=== PATIENT | male | born 1980 | race Two or more races ===

== ENCOUNTER 2025-03-14 13:51 | Inpatient (IN) ==
--- NOTE | 2025-03-14 14:33 | XRay Report ---
XR chest 1V portable CLINICAL HISTORY: Sepsis COMPARISON STUDY: None FINDINGS: Heart size and pulmonary vasculature are normal. No consolidation or pleural effusion. No p neumothorax. IMPRESSION: No acute findings. ACT 112: Negative or not required by law. Electronically signed by: Eloy Pace M.D. 03/14/2025 2:31 PM
[2025-03-14 14:48] LABS: Alanine Aminotransferase 13.0 U/L (7-52); Alkaline Phosphatase 105.0 U/L (34-104); Anion Gap 19.0 (3-11); Bilirubin,Total 0.6 mg/dl (0.2-1.0); Blood Urea Nitrogen 25.0 mg/dl (6-23); Calcium 9.5 mg/dl (8.6-10.3); Carbon Dioxide 15.0 mmol/L (21-32); Chloride 95.0 mmol/L (98-107); Creatinine Clr Calc Pharmacy 92.5 ml/min; Glucose 264.0 mg/dl (70-99(Fasting)); Magnesium 1.8 mg/dl (1.7-2.4); Potassium 4.8 mmol/L (3.5-5.1); Sodium 129.0 mmol/L (136-145); Total Protein 7.7 gm/dl (6.0-8.3)
[2025-03-14] MEDS: SODIUM CHLORIDE 0.9% 1,000 ML IV SCH ×2 (14:48→21:44)
[2025-03-14] MEDS: CEFEPIME 2000MG 2,000 MG/20 ML SYR IV STA (14:48)
[2025-03-14 14:55] LABS: Hematocrit (blood only) 42.8 % (42.0-52.0); Hemoglobin 12.5 g/dl (14.0-18.0); Immature Granulocytes # (auto) 0.05 K/uL (0.01-0.20); Immature Granulocytes % (auto) 0.5 %; Mean Corpuscular Hemoglobin 16.7 pg (25.0-34.0); Mean Corpuscular Volume 57.1 fL (80.0-100.0); Microcytosis Present; Platelet Count 344 K/uL (130-400); Polychromasia 1+; RDW Standard Deviation 33.4 fL (36.4-46.3); Red Blood Count 7.49 M/uL (4.70-6.10); Spherocytes 1+; Tear Drop Cells 1+; White Blood Count 9.17 K/ul (4.8-10.8)
[2025-03-14] MEDS ORDERED: VANCOMYCIN CONSULT ACTIVE PRN (15:10)
--- NOTE | 2025-03-14 15:36 | XRay Report ---
XR foot LT min 3V routine CLINICAL HISTORY: first digit ulcer /infection COMPARISON: None FINDINGS: There are degenerative changes with chronic osseous densities or calcifications dorsally a t the midfoot suggesting Charcot joint changes. There is minimal malalignment at the first TMT joint. No other acute fracture or dislocation seen. No evidence of osteomyelitis. No radiopaque foreign bod y. IMPRESSION: 1. No osteomyelitis seen. 2. Otherwise as described. ACT 112: Negative or not required by law. Electronically signed by: Eloy Pace M.D. 03/14/2025 3:34 PM
--- NOTE | 2025-03-14 15:41 | XRay Report ---
XR foot RT min 3V routine CLINICAL HISTORY: 4th digit ulcer/infection COMPARISON: None FINDINGS: There is an old ununited fracture proximally at the third metatarsal. There are degenerati ve changes at the midfoot suggesting early Charcot joint changes. No acute fracture or dislocation se en. No radiopaque foreign body. No evidence of osteomyelitis. IMPRESSION: No osteomyelitis seen. Otherwise as described. ACT 112: Negative or not required by law. Electronically signed by: Eloy Pace M.D. 03/14/2025 3:39 PM
--- NOTE | 2025-03-14 15:52 | Emergency Department Note ---
Impression & Plan Cellulitis of toe of right foot, Diabetic ulcer of toes of both feet, Type 2 diabetes mellitus ED Provider Note CHIEF COMPLAINT: Infected toes HISTORY OF PRESENTING ILLNESS: Patient is a 44-year-old male who presents to the emergency department today [facility] the [place] [facility]". He reports that he has had sandals on that have been rubbing on his left first toe and right fourth toe causing wounds. He is a type II diabetic on metformin no insulin. He was placed on Keflex as an outpatient without any improvement. Patient does report fevers and chills over the past 2 days. He denies any pain to the bilateral feet. He denies chest pain, sob, breathing difficulties, abdominal pain, headache, blood in stool or urine, any recent illness, or any recent travel. REVIEW OF SYSTEMS: See HPI for pertinent positives and pertinent negatives. ALLERGIES: No known allergies MEDICATIONS: See below PAST MEDICAL HISTORY: See below PHYSICAL EXAM: VITALS: Vitals are noted on the nurse's note and reviewed by myself. GENERAL: Appears ill, very diaphoretic, hypotensive, tachycardic, warm to touch but is afebrile. SKIN: Right fourth toe is ulcerated with possible gangrenous with the skin avulsing off. Right foot does appear to have red streaking to the mid superior foot concerning for cellulitis. Left first toe is open with some discharge and a possible gangrenous area and multiple ulcerations. Capillary refill <2 sec. MOUTH: Mucous membranes moist. Uvula midline. Airway patent. NECK: Supple without nuchal rigidity. HEART: Tachycardic without murmurs gallops or rubs. LUNGS: Clear to auscultation bilaterally without wheezes, rales or rhonchi. No retractions or accessory muscle use. ABDOMEN: Positive bowel sounds x 4. Normal tympanic percussion. Soft, nontender to palpation. No masses or hepatosplenomegaly. Avendano sign negative. No CVA tenderness. No guarding, rigidity, or rebound tenderness. No focal RLQ or LLQ tenderness. MUSCULOSKELETAL: No gross musculoskeletal defects. NEURO: Patient was alert and oriented. No focal neurological deficits. DIFFERENTIAL DIAGNOSIS: Osteomyelitis, fracture, infected wound, sepsis, infection, among others ED COURSE AND MEDICAL DECISION MAKING: HISTORY FROM INDEPENDENT HISTORIAN: History was provided by the patient and 2 guards at the bedside. MEDICATIONS GIVEN: An IV lock was placed. The patient was given 2500 mL of his sepsis fluid resuscitation, cefepime and Vanco. MONITOR: Continuous solar thermal installer: Order was placed for continuous solar thermal installer. Patient was placed on the solar thermal installer and continuous pulse ox. Patient was noted to be in normal sinus rhythm at an initial rate of 110 bpm per my interpretation. EKG: EKG was interpreted by myself as sinus tachycardia. INTERPRETATION OF LABS: I interpreted the labs with full lab results as below in the lab section of this note. Laboratory results pertinent to the emergent complaint are discussed in the MDM section below. The patient was advised to follow up with their PCP and/or specialist(s) for further outpatient monitoring and management of any abnormal results. INTERPRETATION OF IMAGING: Imaging studies were interpreted by myself and read by radiology as per the imaging section of this note. The patient was advised to follow up with their PCP and/or specialist(s) for further outpatient management of any non-emergent abnormal findings. CHRONIC MEDICAL/SOCIAL CONDITIONS AFFECTING CARE: No social concerns were identified as barriers to patients care. ESCALATION OF CARE CONSIDERED: I considered admission on this patient due to failed outpatient treatment with antibiotics. CONSULTATIONS: I had a meaningful discussion about this patient with Dr. Parish who agrees with my assessment and the treatment plan. I did consult with the hospitalist Kezia Monroy for admission to the hospitalist services. I also spoke with Dr. Gomez from podiatry who will plan to see the patient as an inpatient tomorrow morning. SUMMARY: I examined the patient for complaints of toe pain and infection. A physical exam and history were performed. Nursing notes, EMR, and medication list were personally reviewed. There was no leukocytosis, thrombocytopenia. Hemoglobin was 12.5. CMP showed a sodium of 134, carbon dioxide of 15, anion gap of 16, glucose of 200, calcium of 8.5. Troponin was 2.9. And lactate was 1.6. EKG did show a sinus tachycardia. Chest x-ray was negative for any acute findings. The patient was started on vancomycin and cefepime here in the emergency department. The patient did have his full sepsis fluid resuscitation of 2500 mL. I did consult with Dr. Porter who did evaluate the patient. I been consulted with Dr. Gomez from podiatry who will plan to see the patient in the morning. I also spoke with MARCOS Dumont who accepted the patient for admission to the hospital. DIAGNOSIS: Hyponatremia, gangrenous right fourth toe, infection TREATMENT PLAN/DISCHARGE INSTRUCTIONS: Admit to hospitalist services by MARCOS Dumont Past Med/Surg History Problem List (Updated 03/14/25 @ 22:33 by MARCOS Taylor) Cellulitis of toe of right foot (Acute) Hypothyroidism Sleep apnea Hyperlipidemia Hypertension Type 2 diabetes mellitus (Acute) Diabetic ulcer of toes of both feet (Acute) Social History (Updated 03/14/25 @ 17:05 by MARCOS Jeronimo) Smoking Status: Former smoker Current Living Situation: Other Current Living Situation Comment: [facility] Feels Safe at Home: Yes Allergies Allergies Allergy/AdvReac Type Severity Reaction Status Date / Time No Known Allergies Allergy Verified 03/14/25 15:54 Home Meds Home Medications Medication Instructions Recorded Confirmed cephalexin 500 mg capsule 500 mg PO BID 03/14/25 03/14/25 clotrimazole 1 % topical cream 1 applic topical BID 03/14/25 03/14/25 duloxetine 20 mg capsule,delayed 20 mg PO QPM 03/14/25 03/14/25 release sprinkle empagliflozin 25 mg tablet 25 mg PO DAILY 03/14/25 03/14/25 (Jardiance) hydroxyzine pamoate 25 mg capsule 25 mg PO QPM 03/14/25 03/14/25 insulin regular human 100 unit/mL 1 sliding scale dose subcut 03/14/25 03/14/25 injection solution (Humulin R USEASDIRECTD Regular U-100 Insulin) lisinopril 10 mg tablet 10 mg PO DAILY 03/14/25 03/14/25 metformin 1,000 mg tablet 1,000 mg PO BID 03/14/25 03/14/25 rosuvastatin 10 mg tablet 10 mg PO QPM 03/14/25 03/14/25 Results & Data (ED) Vital Signs Vital Signs - 24 hr 03/14/25 13:55 03/14/25 14:15 03/14/25 14:18 Pulse Rate Pulse Rate [Apical] 104 H Pulse Rate from SpO2 Sensor Pulse Rhythm [Apical] Respiratory Rate 24 Respiratory Effort / Characteristics Respiratory Depth Respiratory Pattern Blood Pressure Blood Pressure [Left Arm] 106/66 Blood Pressure Mean Blood Pressure Mean [Left Arm] 79 Blood Pressure Position [Left Arm] Pulse Oximetry 97 97 Oxygen Delivery Method Room Air Room Air Sepsis New/Unexplained Change in Mental Status N/A Sepsis Action Taken by Nursing No Action Required 03/14/25 14:22 03/14/25 14:30 03/14/25 14:54 Pulse Rate 104 H 101 H 98 H Pulse Rate [Apical] Pulse Rate from SpO2 Sensor 101 H 98 H Pulse Rhythm [Apical] Respiratory Rate 17 18 Respiratory Effort / Characteristics Respiratory Depth Respiratory Pattern Blood Pressure 110/70 126/73 Blood Pressure [Left Arm] Blood Pressure Mean 82 89 Blood Pressure Mean [Left Arm] Blood Pressure Position [Left Arm] Pulse Oximetry 99 96 Oxygen Delivery Method Sepsis New/Unexplained Change in Mental Status Sepsis Action Taken by Nursing 03/14/25 15:00 03/14/25 15:30 03/14/25 15:45 Pulse Rate 112 H 101 H 89 Pulse Rate [Apical] Pulse Rate from SpO2 Sensor 112 H 102 H 89 Pulse Rhythm [Apical] Respiratory Rate 17 16 16 Respiratory Effort / Characteristics Respiratory Depth Respiratory Pattern Blood Pressure 141/77 H 139/88 140/86 Blood Pressure [Left Arm] Blood Pressure Mean 91 96 113 Blood Pressure Mean [Left Arm] Blood Pressure Position [Left Arm] Pulse Oximetry 97 99 97 Oxygen Delivery Method Sepsis New/Unexplained Change in Mental Status Sepsis Action Taken by Nursing 03/14/25 15:45 03/14/25 16:00 03/14/25 16:15 Pulse Rate 97 H 97 H Pulse Rate [Apical] 83 Pulse Rate from SpO2 Sensor 97 H 96 H Pulse Rhythm [Apical] Regular Respiratory Rate 17 17 16 Respiratory Effort / Characteristics Non-Labored Spontaneous Respiratory Depth Normal Respiratory Pattern Regular Blood Pressure 140/86 136/85 Blood Pressure [Left Arm] 114/78 Blood Pressure Mean 113 103 Blood Pressure Mean [Left Arm] 90 Blood Pressure Position [Left Arm] Lying Pulse Oximetry 96 99 99 Oxygen Delivery Method Room Air Sepsis New/Unexplained Change in Mental Status Sepsis Action Taken by Nursing 03/14/25 16:15 03/14/25 16:33 03/14/25 16:45 Pulse Rate 100 H 104 H 95 H Pulse Rate [Apical] Pulse Rate from SpO2 Sensor 100 H 103 H 95 H Pulse Rhythm [Apical] Respiratory Rate 15 18 18 Respiratory Effort / Characteristics Respiratory Depth Respiratory Pattern Blood Pressure 114/78 148/93 H 117/70 Blood Pressure [Left Arm] Blood Pressure Mean 93 111 84 Blood Pressure Mean [Left Arm] Blood Pressure Position [Left Arm] Pulse Oximetry 100 100 100 Oxygen Delivery Method Sepsis New/Unexplained Change in Mental Status Sepsis Action Taken by Nursing Laboratory Data 03/14/25 14:09 03/14/25 19:56 Lab Results 03/14/25 03/14/25 Range/Units 14:02 14:09 WBC 9.17 (4.8-10.8) K/ul RBC 7.49 H (4.70-6.10) M/uL Hgb 12.5 L (14.0-18.0) g/dl Hct 42.8 (42.0-52.0) % MCV 57.1 L (80.0-100.0) fL MCH 16.7 L (25.0-34.0) pg MCHC 29.2 L (32.0-36.0) g/dL RDW Std Deviation 33.4 L (36.4-46.3) fL RDW Coeff of Dewayne 19.9 H (11.5-14.5) % Plt Count 344 (130-400) K/uL Immature Gran % (Auto) 0.5 % Neut % (Auto) 76.3 % Lymph % (Auto) 15.8 % [place] % (Auto) 6.4 % Eos % (Auto) 0.3 % Baso % (Auto) 0.7 % Neut # (Auto) 6.99 H (1.40-6.50) K/uL Lymph # (Auto) 1.45 (1.20-3.40) K/uL [place] # (Auto) 0.59 (0.11-0.59) K/uL Eos # (Auto) 0.03 (0.00-0.50) K/uL Baso # (Auto) 0.06 (0.00-0.20) K/uL Immature Gran # (Auto) 0.05 (0.01-0.20) K/uL Polychromasia 1+ Microcytosis Present Spherocytes 1+ Tear Drop Cells 1+ Sodium 129 L (136-145) mmol/L Potassium 4.8 (3.5-5.1) mmol/L Chloride 95 L (98-107) mmol/L Carbon Dioxide 15 L (21-32) mmol/L Anion Gap 19 H (3-11) BUN 25 H (6-23) mg/dl Creatinine 1.37 (0.6-1.4) mg/dl Est Cr Clr Drug Dosing 92.5 ml/min eGFR 65.23 BUN/Creatinine Ratio 18.2 (10-20) Glucose 264 H (70-99(Fasting)) mg/dl POC Glucose 262 H (70-99) mg/dl Osmolality 294 (280-300) mOsm/kg Lactate 1.6 (0.4-2.0) mmol/L Calcium 9.5 (8.6-10.3) mg/dl Magnesium 1.8 (1.7-2.4) mg/dl Total Bilirubin 0.6 (0.2-1.0) mg/dl Direct Bilirubin 0.1 (0-0.2) mg/dl AST 11 L (13-39) U/L ALT 13 (7-52) U/L Alkaline Phosphatase 105 H (34-104) U/L Troponin I High Sens 2.9 (0-20) pg/ml Total Protein 7.7 (6.0-8.3) gm/dl Albumin 4.0 (3.4-5.0) gm/dl Procalcitonin 0.11 (0-0.5) ng/ml Administered Medications Duloxetine HCl (Duloxetine Hcl 20 Mg Cap) 20 mg PO QPM FEI Stop: 04/13/25 20:59 Last Admin: 03/14/25 21:45 Dose: 20 mg Documented By: ROMAN Sodium Chloride (Nss) 1,000 mls @ 65 mls/hr IV .[id number] FEI Stop: 03/15/25 23:37 Last Admin: 03/14/25 21:44 Dose: 65 mls/hr Documented By: ROMAN Insulin Aspart (Insulin Aspart Per Unit Charge) 0 units SC ACHS FEI Stop: 04/13/25 20:59 Last Admin: 03/14/25 22:02 Dose: 1 units Documented By: ROMAN Co-signed By: RANDY Lactobacillus Acidophilus (Advanced Probiotic 625 Mg Capsule) 1,250 mg PO DAILY FEI Stop: 04/13/25 20:59 Last Admin: 03/14/25 21:45 Dose: 1,250 mg Documented By: ROMAN Rosuvastatin Calcium (Rosuvastatin Calcium 10 Mg Tab) 10 mg PO QPM FEI Stop: 04/13/25 20:59 Last Admin: 03/14/25 21:45 Dose: 10 mg Documented By: ROMAN Discontinued Medications Sodium Chloride (Nss) 500 mls @ 999 mls/hr IV .Q31M FEI Stop: 03/14/25 15:00 Last Infusion: 03/14/25 17:53 Dose: Infused Documented By: Admin: 03/14/25 16:01 Dose: 999 mls/hr Documented By: ZOE Sodium Chloride (Nss) 1,000 mls @ 999 mls/hr IV .Q1H1M FEI Stop: 03/14/25 16:30 Last Infusion: 03/14/25 16:01 Dose: Infused Documented By: Admin: 03/14/25 14:48 Dose: 999 mls/hr Documented By: Infusion: 03/14/25 14:48 Dose: Infused Documented By: Admin: 03/14/25 14:48 Dose: 999 mls/hr Documented By: ZOE Cefepime HCl (Maxipime 2000mg) 2,000 mg in 20 mls @ 5 mls/min IV NOW STA; Protocol Stop: 03/14/25 14:29 Last Admin: 03/14/25 14:48 Dose: 5 mls/min Documented By: ZOE Vancomycin HCl 2,500 mg/ (Sodium Chloride) 550 mls @ 200 mls/hr IV NOW ONE Stop: 03/14/25 17:54 Last Infusion: 03/14/25 21:47 Dose: Infused Documented By: Admin: 03/14/25 15:58 Dose: 200 mls/hr Documented By: ZOE Imaging Data Radiologist's Impression: Chest X-Ray 03/14/25 14:18 XR chest 1V portable CLINICAL HISTORY: Sepsis COMPARISON STUDY: None FINDINGS: Heart size and pulmonary vasculature are normal. No consolidation or pleural effusion. No pneumothorax. IMPRESSION: No acute findings. ACT 112: Negative or not required by law. Electronically signed by: Eloy Pace M.D. 03/14/2025 2:31 PM Foot X-Ray 03/14/25 15:09 XR foot RT min 3V routine CLINICAL HISTORY: 4th digit ulcer/infection COMPARISON: None FINDINGS: There is an old ununited fracture proximally at the third metatarsal. There are degenerative changes at the midfoot suggesting early Charcot joint changes. No acute fracture or dislocation seen. No radiopaque foreign body. No evidence of osteomyelitis. IMPRESSION: No osteomyelitis seen. Otherwise as described. ACT 112: Negative or not required by law. Electronically signed by: Eloy Pace M.D. 03/14/2025 3:39 PM Foot X-Ray 03/14/25 15:09 XR foot LT min 3V routine CLINICAL HISTORY: first digit ulcer /infection COMPARISON: None FINDINGS: There are degenerative changes with chronic osseous densities or calcifications dorsally at the midfoot suggesting Charcot joint changes. There is minimal malalignment at the first TMT joint. No other acute fracture or dislocation seen. No evidence of osteomyelitis. No radiopaque foreign body. IMPRESSION: 1. No osteomyelitis seen. 2. Otherwise as described. ACT 112: Negative or not required by law. Electronically signed by: Eloy Pace M.D. 03/14/2025 3:34 PM Duplex Scan Lower Extremity Artery 03/14/25 16:40 Exam(s): US ARTERIAL BILATERAL LOWER EXTREMITIES EXAM: US Duplex Bilateral Lower Extremities Arteries CLINICAL HISTORY: necrotic toe. TECHNIQUE: Real-time duplex ultrasound scan of the bilateral lower extremity arteries integrating B-mode two-dimensional vascular structure, Doppler spectral analysis and color flow Doppler imaging. COMPARISON: No relevant prior studies available. FINDINGS: Right common femoral artery: Atherosclerotic disease. Peak systolic velocity in the right common femoral artery is 107 cm/s. Multiphasic waveform. Right deep femoral artery: Peak systolic velocity in the right deep femoral artery is 108 cm/s. Biphasic waveform. Right superficial femoral artery: Peak systolic velocity in the right superficial femoral artery is 121 cm/s. Biphasic waveform. Right popliteal artery: Peak systolic velocity in the right popliteal artery is 99 cm/s. Biphasic waveform. Right calf/foot arteries: Peak systolic velocity in the right posterior tibial artery is 95 cm/s. Biphasic waveform. Peak systolic velocity in the right peroneal artery is 57 cm/s. Biphasic waveform. Peak systolic velocity in the right anterior tibial artery is 104 cm/s. Biphasic waveform. Peak systolic velocity in the right dorsalis pedis artery is 83 cm/s. Biphasic waveform. Left common femoral artery: Atherosclerotic disease Peak systolic velocity in the left common femoral artery is 126 cm/s. Biphasic waveform. Left deep femoral artery: Peak systolic velocity in the left deep femoral artery is 130 cm/s. Biphasic waveform. Left superficial femoral artery: Peak systolic velocity in the left superficial femoral artery is 124 cm/s. Biphasic waveform. Left popliteal artery: Peak systolic velocity in the left popliteal artery is 116 cm/s. Biphasic waveform. Left calf/foot arteries: Peak systolic velocity in the left posterior tibial artery is 92 cm/s. Biphasic waveform. Peak systolic velocity in the left peroneal artery is 87 cm/s. Biphasic waveform. Peak systolic velocity in the left anterior tibial artery is 96 cm/s. Biphasic waveform. Peak systolic velocity in the left dorsalis pedis artery is 83 cm/s. Monophasic to biphasic waveform. Other arteries: Right ankle-brachial index (RAKEL) is 0.9. Left ankle- brachial index (RAKEL) is 0.86. Soft tissues: Unremarkable. IMPRESSION: 1. Right ankle-brachial index (RAKEL) is 0.9. Findings are borderline for peripheral arterial disease (PAD). 2. Left ankle-brachial index (RAKEL) is 0.86. Findings are consistent with mild peripheral arterial disease (PAD). Electronically signed by: Real Ramirez MD 03/14/25 22:20 PM Discharge Plan Visit Data Chief Complaint: Toe Injury/Pain Stated Complaint: TOES ARE SORE AND RT TURNING BLACK ED Provider: Matty Parish ED Midlevel Provider: Christina Penaloza Discharge Problem: Cellulitis of toe of right foot, Diabetic ulcer of toes of both feet, Type 2 diabetes mellitus Patient Disposition: Admitted As Inpatient Condition: Fair Discharge Instructions Interventions: ED Discharge Assessment Last Done: 03/14/25 17:54 Discharge Problem: Type 2 diabetes mellitus Qualifiers: Diabetes mellitus jail insulin use: without jail use Diabetes mellitus complication status: with other specified complication Qualified Code(s): E11.69 - Type 2 diabetes mellitus with other specified complication
[2025-03-14] MEDS: VANCOMYCIN HCL 2,500 MG in SODIUM CHLORIDE 0.9% 500 ML IV ONE (15:58)
[2025-03-14] MEDS: SODIUM CHLORIDE 0.9% 500 ML IV SCH (16:01)
--- NOTE | 2025-03-14 16:09 | History & Physical Report ---
Date of Service March 14, 2025 Assessment & Plan (1) Diabetic ulcer of toes of both feet: (2) Cellulitis of toe of right foot: (3) Type 2 diabetes mellitus: (4) Hypertension: (5) Hyperlipidemia: (6) Hypothyroidism: (7) Sleep apnea: Plan 44 year old male inmate with PMH significant for type 2 diabetes, hypertension, hyperlipidemia, hypothyroidism, sleep apnea, and tinea corporis who presents to the ED on 03/14/2025 for toe wounds. Diabetic ulcer of toes of both feet Patient presents with ulcer of left great toe and ulcer/necrosis of right fourth toe No leukocytosis, lactate/procal WNL, afebrile, vitals stable - no concern for sepsis at this time X-ray without evidence of osteomyelitis Bilateral arterial dopplers ordered PRN tylenol for pain Podiatry consulted NPO at midnight for possible procedure in am Cellulitis of toe of right foot Cellulitis present at base of right fourth toe Received cefepime and vanco in the ED Continue cefepime and vanco Follow blood cultures Type 2 diabetes Patient states diagnosed in 2019 Blood glucose 264 - per records has been >200 for the last few days On metformin and Jardiance - holding while inpatient Continue SSI inpatient Anion gap of 19 concerning for possible DKA - ordered urine ketones and UA Recheck BMP at 1999 Hyponatremia Na 129 on admission Likely due to poor PO intake/dehydration Continue MIVF with NSS Recheck BMP at 2000 Hypertension Continue lisinopril Hyperlipidemia Continue rosuvastatin Hypothyroidism On levothyroxine per patient but not per records from [facility] Called and talked to Dr Madera who spoke with his pharmacy and noted levothyroxine is not prescribed for patient Check TSH in am DVT Prophylaxis: SCDs d/t possible procedure Code Status: FULL CODE - As per discussion at bedside with the patient. PCP: [facility] Disposition: admit to telemetry Patient seen in collaboration with Dr Capone. Please see addendum. I spent a total of 75 minutes coordinating, documenting and providing care for this patient excluding time spent in the performance of separately billed services or time spent by another provider/QHP. Admission and Anticipated Discharge Date Admission Date: 03/14/2025 History of Present Illness Chief Complaint: toe wounds Primary Care Provider: Eloy Pearson DO 44 year old male inmate with PMH significant for type 2 diabetes, hypertension, hyperlipidemia, hypothyroidism, sleep apnea, and tinea corporis who presents to the ED on 03/14/2025 for toe wounds. Patient reports that he was given new shoes about five days ago and since walking around in them, he developed toe wounds on his left first toe and right fourth toe. He was given his previous shoes about two days ago, but the wounds are not improving, and his right fourth toe is turning black, which is why he sought evaluation today. He reports slight pain and numbness in his right foot but otherwise is able to ambulate without significant pain. Current pain is 2/10. He reports that his facility was soaking and wrapping his wounds and he was given an oral antibiotic. He reports feeling fatigued, weak, and has had a poor appetite. Denies fevers, chills, chest pain, abdominal pain, N/V/D. Allergies Allergy/AdvReac Type Severity Reaction Status Date / Time No Known Allergies Allergy Verified 03/14/25 15:54 Home Medications Medication Instructions Recorded Confirmed Type cephalexin 500 mg capsule 500 mg PO BID 03/14/25 03/14/25 History clotrimazole 1 % topical cream 1 applic topical BID 03/14/25 03/14/25 History duloxetine 20 mg capsule,delayed 20 mg PO QPM 03/14/25 03/14/25 History release sprinkle empagliflozin 25 mg tablet 25 mg PO DAILY 03/14/25 03/14/25 History (Jardiance) hydroxyzine pamoate 25 mg capsule 25 mg PO QPM 03/14/25 03/14/25 History insulin regular human 100 unit/mL 1 sliding scale dose subcut 03/14/25 03/14/25 History injection solution (Humulin R USEASDIRECTD Regular U-100 Insulin) lisinopril 10 mg tablet 10 mg PO DAILY 03/14/25 03/14/25 History metformin 1,000 mg tablet 1,000 mg PO BID 03/14/25 03/14/25 History rosuvastatin 10 mg tablet 10 mg PO QPM 03/14/25 03/14/25 History Past Med/Surg History Problem List (Updated 03/14/25 @ 17:08 by MARCOS Jeronimo) Cellulitis of toe of right foot Hypothyroidism Sleep apnea Hyperlipidemia Hypertension Type 2 diabetes mellitus Diabetic ulcer of toes of both feet Social History (Updated 03/14/25 @ 17:05 by MARCOS Jeronimo) Smoking Status: Former smoker Current Living Situation: Other Current Living Situation Comment: [facility] Feels Safe at Home: Yes Review of Systems Review of Systems: All systems reviewed & are unremarkable except as noted in HPI & below Physical Exam Physical Exam: General/Psych: WD/WN, sitting up in bed, NAD, conversing easily Head: normocephalic, atraumatic Eyes: normal inspection, PERRL, conjunctivae pink, anicteric sclerae ENT: external ear and nose normal, oropharynx normal Neck: normal visual inspection, trachea midline Respiratory: normal respiratory effort, lungs clear to auscultation, no wheeze/rales/rhonchi, no accessory muscle use Cardiovascular: regular rate and rhythm, no murmur/rub/gallop, no JVD Extremities: no cyanosis or clubbing, normal peripheral pulses, no BLE edema Abdomen/GI: normal bowel sounds, soft, nontender Neurologic/MSK: A+Ox3, motor strength 5/5, moves all extremities Skin: no rashes, normal color, warm and dry, left great toe with open moist erythematic ulcer, right fourth toe with open moist dark red erthematic ulcer and cyanotic/necrotic tip and erythema at the base of the toe on the foot Results & Data Results & Data Vital Signs (Past 12 Hours) Vital Signs Pulse Pulse Resp BP BP Pulse Ox O2 Del Method 03/14/25 15:45 89 16 140/86 97 03/14/25 15:30 101 H 16 139/88 99 03/14/25 15:00 112 H 17 141/77 H 97 03/14/25 14:54 98 H 18 126/73 96 03/14/25 14:30 101 H 17 110/70 99 03/14/25 14:22 104 H 03/14/25 14:18 97 Room Air 03/14/25 14:15 104 H 24 106/66 97 Room Air Laboratory Results Short CBC 03/14/25 Range/Units 14:09 WBC 9.17 (4.8-10.8) K/ul Hgb 12.5 L (14.0-18.0) g/dl Hct 42.8 (42.0-52.0) % Plt Count 344 (130-400) K/uL BMP 03/14/25 14:09 Sodium 129 L Potassium 4.8 Chloride 95 L Carbon Dioxide 15 L BUN 25 H Creatinine 1.37 Glucose 264 H Calcium 9.5 Liver Function 03/14/25 Range/Units 14:09 Total Bilirubin 0.6 (0.2-1.0) mg/dl Direct Bilirubin 0.1 (0-0.2) mg/dl AST 11 L (13-39) U/L ALT 13 (7-52) U/L Alkaline Phosphatase 105 H (34-104) U/L Albumin 4.0 (3.4-5.0) gm/dl I have independently reviewed and interpreted patient's admitting labs including CBC, CMP, lactate, mag, troponin, lipase, procalcitonin. Diagnostic Findings Chest X-Ray 03/14/25 14:18 XR chest 1V portable CLINICAL HISTORY: Sepsis COMPARISON STUDY: None FINDINGS: Heart size and pulmonary vasculature are normal. No consolidation or pleural effusion. No pneumothorax. IMPRESSION: No acute findings. ACT 112: Negative or not required by law. Electronically signed by: Eloy Pace M.D. 03/14/2025 2:31 PM Foot X-Ray 03/14/25 15:09 XR foot RT min 3V routine CLINICAL HISTORY: 4th digit ulcer/infection COMPARISON: None FINDINGS: There is an old ununited fracture proximally at the third metatarsal. There are degenerative changes at the midfoot suggesting early Charcot joint changes. No acute fracture or dislocation seen. No radiopaque foreign body. No evidence of osteomyelitis. IMPRESSION: No osteomyelitis seen. Otherwise as described. ACT 112: Negative or not required by law. Electronically signed by: Eloy Pace M.D. 03/14/2025 3:39 PM Foot X-Ray 03/14/25 15:09 XR foot LT min 3V routine CLINICAL HISTORY: first digit ulcer /infection COMPARISON: None FINDINGS: There are degenerative changes with chronic osseous densities or calcifications dorsally at the midfoot suggesting Charcot joint changes. There is minimal malalignment at the first TMT joint. No other acute fracture or dislocation seen. No evidence of osteomyelitis. No radiopaque foreign body. IMPRESSION: 1. No osteomyelitis seen. 2. Otherwise as described. ACT 112: Negative or not required by law. Electronically signed by: Eloy Pace M.D. 03/14/2025 3:34 PM Code Status & VTE Plan Code Status Full Code Supervising Physician Co-Signing Physician Notes 44-year-old male with PMH T2DM, hypothyroidism was brought in from assisted center [[facility]] due to worsening toe infection. Patient reports he started developing sore 5 days ago in his left great toe and right fourth toe which developed into ulcer and he started having blackish discoloration since 2 days ago. He denies fever/sore throat/cough/chest pain/vomiting. He reports weakness/nausea/poor appetite for about 1 week. Labs and imagings reviewed. 12.5, monitor. WBC WNL. Sodium 129, chloride 95, CO2 15, glucose 264 LFT patient WNL, calcitonin and lactate WNL. X-ray bilateral foot suggesting early charcot joint changes, no evidence of osteomyelitis. Old third metatarsal fracture noted on the right. Admit in PCU telemetry. Toe cellulitis: Continue with cefepime and vancomycin, add probiotic, await admitting blood culture, bilateral arterial Doppler LE, podiatry consult. Old third metatarsal fracture on the right: Podiatry consult. Patient without significant pain. Hyponatremia, mild: Likely secondary to poor p.o. intake. NSS at 65 mL an hour. Send hypoNa w/u. Anion gap Metabolic acidosis: Could be developing DKA ISO infection, given history of T2DM. Will get urinary analysis and urinary ketone body. Sliding scale insulin.Continue with IV fluids. Repeat labs around 8 pm. A1C in am. On exam: RA, NAD, Lt great toe and right 4th toes w/ ulcer, erythematous streak ing, warmth, black eschar. b/l dorsalis pedis pulse palpable. rest of the exam as above. Total time spent independently : 25min I have seen and examined the patient and have discussed the case with the provider above. I agree with the assessment and plan as stated.
[2025-03-14] MEDS ORDERED: GLUCAGON FOR INJ 1 MG VIAL SQ PRN (18:26)
[2025-03-14] MEDS ORDERED: DEXTROSE 50% 50 ML SYRINGE IV PRN (18:26)
[2025-03-14] MEDS ORDERED: GLUCOSE 40% GEL 15 GM TUBE PO PRN (18:26)
[2025-03-14] MEDS ORDERED: GLUCOSE 10 TAB/TUBE PO PRN (18:26)
[2025-03-14] MEDS ORDERED: CARBOHYDRATES FOR HYPOGLYCEMIA PO PRN (18:26)
[2025-03-14 20:31] LABS: Anion Gap 16.0 (3-11); Blood Urea Nitrogen 19.0 mg/dl (6-23); Calcium 8.5 mg/dl (8.6-10.3); Carbon Dioxide 15.0 mmol/L (21-32); Chloride 103.0 mmol/L (98-107); Creatinine Clr Calc Pharmacy 124.3 ml/min; Glucose 200.0 mg/dl (70-99(Fasting)); Potassium 4.7 mmol/L (3.5-5.1); Sodium 134.0 mmol/L (136-145)
--- NOTE | 2025-03-14 21:07 | Podiatry Consultation ---
Date of Consultation March 14, 2025 Assessment & Plan (1) Cellulitis of toe of right foot: (2) Gangrene of toe of right foot: (3) Type 2 diabetes mellitus: Diabetes mellitus complication status: with other specified complication Diabetes mellitus [facility] insulin use: without [facility] use Qualified Code(s): E11.69 - Type 2 diabetes mellitus with other specified complication (4) Diabetic ulcer of toes of both feet: Plan Diabetic ulcer of the left hallux and fourth toe: - 3 views bilateral foot plain film radiograph 03/14/2025: No radiographic signs of osteomyelitis to the toes. Findings consistent with Charcot neuroarthropathy of the midfoot bilateral. - Bilateral lower extremity arterial ultrasound 03/14/2025: Right ankle- brachial index (RKAEL) is 0.9. Findings are borderline for peripheral arterial disease (PAD). Left ankle-brachial index (RAKEL) is 0.86. Findings are consistent with mild peripheral arterial disease (PAD). - Blood culture x 2 03/14/2025: Pending Plan: 1. Dry gangrene right fourth toe with local cellulitis of the right foot. Lengthy discussion with patient regarding treatment of the right fourth toe. Recommend amputation of the right fourth digit with attempted primary closure. Patient does not wish to move forward with amputation at this time and would like to treat conservatively with antibiotic and wound care. Currently viable soft tissues proximal to the dry gangrene are not optimized for primary closure which would be recommended especially given patient's current living situation. Should patient reconsider recommendation for amputation will allow soft tissue envelope to improve with continued IV antibiotics and wound care over the weekend and could potentially take him to the operating room first thing Tuesday morning. Patient would like to discuss the condition with his family which is complicated by the fact that he is incarcerated. Working with residential case management to determine procedure for contacting family. Not unreasonable to continue daily dressing changes with Betadine wet-to-dry soft tissues to demarcate and bring patient to OR as an outpatient should he decide to move forward with amputation. If patient chooses to treat conservatively would recommend continued IV antibiotics while patient is in house adjusted based on culture results from left great toe for discharge. - No open wound or active drainage to enable collection of culture. - Order postop shoe for the right foot. 2. Diabetic ulcer left great toe local soft tissue infection. - Dressing change once daily with Aquacel Ag and a dry sterile dressing. - Consult placed with orthotics department to be fit with high tide Cam walker with offloading to the left foot. - Culture drainage from left great toe wound. Thank you for consulting podiatry today in the care of this patient. Will continue to follow while he remains in house and recommend close follow-up in the wound care center following discharge. History of Present Illness Reason for Consultation: Diabetic ulcer bilateral foot Attending Physician: Krupa Capone MD History of Present Illness Patrick is a 44-year-old inmate with past medical history significant for type 2 diabetes with longstanding diabetic peripheral neuropathy, bilateral Charcot neuroarthropathy of the midfoot, history of diabetic foot ulceration, hypertension, hyperlipidemia, sleep apnea. Patient presents to [facility] emergency department 03/14/2025 from present with 2 guards present with concern for cellulitis of the left foot stemming from diabetic foot ulceration to the left great and fourth toes. He denies vomiting, fever, chills. Reports malaise and headaches. No leukocytosis, lactate within normal limits, procalcitonin within normal limits, afebrile, vital signs stable. X-ray x 2 performed in emergency department without radiographic findings of osteomyelitis to the digits. Blood cultures collected x 2. Initiated on IV cefepime and vancomycin. A1c 10.1. Patient reported history of changes in the shape of the foot approximately 5 years ago likely representing Charcot neuroarthropathy. Patient reports entering the residential system 5 days ago and is currently at [facility] in [place]. Reports he will remain in residential until deported to [place]. Patient is a citizen of [place] but is been living in the [facility] in [place] in [place] since age 5. At that time he was given a pair shoes that he reports did not fit well and developed ulcers to the left hallux and right fourth toe. Reports nursing staff at the residential has been changing the dressings however they have come loose multiple times and fallen off. Allergies Allergy/AdvReac Type Severity Reaction Status Date / Time No Known Allergies Allergy Verified 03/14/25 15:54 Home Medications Medication Instructions Recorded Confirmed Type cephalexin 500 mg capsule 500 mg PO BID 03/14/25 03/14/25 History clotrimazole 1 % topical cream 1 applic topical BID 03/14/25 03/14/25 History duloxetine 20 mg capsule,delayed 20 mg PO QPM 03/14/25 03/14/25 History release sprinkle empagliflozin 25 mg tablet 25 mg PO DAILY 03/14/25 03/14/25 History (Jardiance) hydroxyzine pamoate 25 mg capsule 25 mg PO QPM 03/14/25 03/14/25 History insulin regular human 100 unit/mL 1 sliding scale dose subcut 03/14/25 03/14/25 History injection solution (Humulin R USEASDIRECTD Regular U-100 Insulin) lisinopril 10 mg tablet 10 mg PO DAILY 03/14/25 03/14/25 History metformin 1,000 mg tablet 1,000 mg PO BID 03/14/25 03/14/25 History rosuvastatin 10 mg tablet 10 mg PO QPM 03/14/25 03/14/25 History Patient History Social History (Updated 03/14/25 @ 17:05 by MARCOS Jeronimo) Smoking Status: Former smoker Current Living Situation: Other Current Living Situation Comment: [facility] Feels Safe at Home: Yes Review of Systems Review of Systems: Positive for malaise and headaches. Patient denies vomiting fever chills shortness of breath chest pain. Denies pain in the bilateral foot. Reports longstanding neuropathy to the bilateral foot. Review of systems negative unless otherwise stated in HPI. Physical Exam Physical Exam: Const: Appears well developed and well nourished. No signs of acute distress present. CV: Extremities: No cyanosis Capillary refill time is less than 2 seconds all digits of the bilateral foot. Posterior tibial and dorsalis pedis pulses are palpable bilateral. Lymph: No palpable or visible regional lymphadenopathy. Neuro: Loss of protective sensation bilateral foot Psych: Mood/Affect: Mood is normal. Affect is normal. Cognition: Orientation is intact to person, place and time. Focused lower extremity musculoskeletal exam: Leg: No pain with compression of the calf muscle. Ankles: Normal to inspection and palpation. No swelling bilaterally. No tenderness bilaterally. Motor strength is intact. Range of motion pain-free and unlimited. Feet: Bilateral Charcot neuroarthropathy with deformity of the midfoot and loss of medial arch height. Ulcer #1: Right fourth toe dry gangrene. Cellulitis extending from the base of the fourth toe to the level of the dorsal midfoot is marked with purple marker. Ulcer #2: Left great toe: Wound of the great toe is relatively superficial limited to breakdown in skin with large open area and early eschar to the plantar distal aspect of the toe. No active drainage. There is a small bullous area just proximal to the primary wound which is opened and drainage is cultured. This area is also limited to breakdown of skin. Mild erythema and edema to the left great toe without lymphangitis or streaking. Results & Data Vital Signs (Past 12 Hours) Vital Signs Temp Pulse Pulse Resp BP BP Pulse Ox 03/14/25 18:26 36.9 C 105 H 20 159/85 H 100 03/14/25 17:54 03/14/25 17:45 107 H 14 147/87 H 99 03/14/25 17:30 93 H 16 107/64 94 03/14/25 17:15 92 H 18 111/60 98 03/14/25 16:45 95 H 18 117/70 100 03/14/25 16:33 104 H 18 148/93 H 100 03/14/25 16:15 100 H 15 114/78 100 03/14/25 16:15 83 16 114/78 99 03/14/25 16:00 97 H 17 136/85 99 03/14/25 15:45 97 H 17 140/86 96 03/14/25 15:45 89 16 140/86 97 03/14/25 15:30 101 H 16 139/88 99 03/14/25 15:00 112 H 17 141/77 H 97 03/14/25 14:54 98 H 18 126/73 96 03/14/25 14:30 101 H 17 110/70 99 03/14/25 14:22 104 H 03/14/25 14:18 97 03/14/25 14:15 104 H 24 106/66 97 O2 Del Method 03/14/25 18:26 Room Air 03/14/25 17:54 Room Air 03/14/25 17:45 03/14/25 17:30 03/14/25 17:15 03/14/25 16:45 03/14/25 16:33 03/14/25 16:15 03/14/25 16:15 Room Air 03/14/25 16:00 03/14/25 15:45 03/14/25 15:45 03/14/25 15:30 03/14/25 15:00 03/14/25 14:54 03/14/25 14:30 03/14/25 14:22 03/14/25 14:18 Room Air 03/14/25 14:15 Room Air Diagnostic Findings 03/14/2025: XR foot LT min 3V routine CLINICAL HISTORY: first digit ulcer /infection COMPARISON: None FINDINGS: There are degenerative changes with chronic osseous densities or calcifications dorsally at the midfoot suggesting Charcot joint changes. There is minimal malalignment at the first TMT joint. No other acute fracture or dislocation seen. No evidence of osteomyelitis. No radiopaque foreign body. IMPRESSION: 1. No osteomyelitis seen. 2. Otherwise as described. 03/14/2025:XR foot RT min 3V routine CLINICAL HISTORY: 4th digit ulcer/infection COMPARISON: None FINDINGS: There is an old ununited fracture proximally at the third metatarsal. There are degenerative changes at the midfoot suggesting early Charcot joint changes. No acute fracture or dislocation seen. No radiopaque foreign body. No evidence of osteomyelitis. IMPRESSION: No osteomyelitis seen. Otherwise as described. Arterial ultrasound bilateral lower extremity 03/14/2025 IMPRESSION: 1. Right ankle-brachial index (RAKEL) is 0.9. Findings are borderline for peripheral arterial disease (PAD). 2. Left ankle-brachial index (RAKEL) is 0.86. Findings are consistent with mild peripheral arterial disease (PAD). PG Care Time/CCT Total # of Minutes Spent Total Time Spent with Patient: Total time spent is greater than 50% in coordination of care (as documented) at patient's floor/unit and/or counseling patient: [place] [address] IN/OBS CONSULT LVL 4,60M Patient Type New Diagnoses Cellulitis of toe of right foot L03.031 Gangrene of toe of right foot I96 Type 2 diabetes mellitus E11.69 Diabetes mellitus complication status: with other specified complication Diabetes mellitus [facility] insulin use: without [facility] use Diabetic ulcer of toes of both feet E11.621; L97.519; L97.529
[2025-03-14] MEDS: ROSUVASTATIN CALCIUM 10 MG TAB PO SCH (21:45)
[2025-03-14] MEDS: ADVANCED PROBIOTIC 625 MG CAPSULE PO SCH (21:45)
[2025-03-14] MEDS: INSULIN ASPART PER UNIT CHARGE SC SCH (22:02)
--- NOTE | 2025-03-14 22:15 | Emergency Department Note ---
ED Visit Note Physician Evaluation Note: Patient was seen in conjunction with the midlevel provider. Please see the midlevel provider note for full details of the patient's visit. I have personally evaluated and examined this patient. Patient presented to the ED with ulcerations to the left great toe and the right fourth digit. Patient's foot appears to be consistent with dry gangrene of the fourth digit of the right foot and similar findings to a more mild extent to the left foot great toe. Patient was started on IV antibiotics here in the ED, po maddie was consulted. Will plan for admission likely for operative intervention with podiatry. Patient was placed for admission in stable condition. Patient is otherwise hemodynamically stable and in no acute distress here in the ED. He does not appear to be septic. I agree with assessment and plan of Christina Penaloza NP. Matty Parish DO .
--- NOTE | 2025-03-14 22:22 | Ultrasound Report ---
Exam(s): US ARTERIAL BILATERAL LOWER EXTREMITIES EXAM: US Duplex Bilateral Lower Extremities Arteries CLINICAL HISTORY: necrotic toe. TECHNIQUE: Real-time duplex ultrasound scan of the bilateral lower extremity arteries integrating B-mode two-dimensional vascular structure, Doppler spectral analysis and color flow Doppler imaging. COMPARISON: No relevant prior studies available. FINDINGS: Right common femoral artery: Atherosclerotic disease. Peak systolic velocity in the right common femoral artery is 107 cm/s. Multiphasic waveform. Right deep femoral artery: Peak systolic velocity in the right deep femoral artery is 108 cm/s. Biphasic waveform. Right superficial femoral artery: Peak systolic velocity in the right superficial femoral artery is 121 cm/s. Biphasic waveform. Right popliteal artery: Peak systolic velocity in the right popliteal artery is 99 cm/s. Biphasic waveform. Right calf/foot arteries: Peak systolic velocity in the right posterior tibial artery is 95 cm/s. Biphasic waveform. Peak systolic velocity in the right peroneal artery is 57 cm/s. Biphasic waveform. Peak systolic velocity in the right anterior tibial artery is 104 cm/s. Biphasic waveform. Peak systolic velocity in the right dorsalis pedis artery is 83 cm/s. Biphasic waveform. Left common femoral artery: Atherosclerotic disease Peak systolic velocity in the left common femoral artery is 126 cm/s. Biphasic waveform. Left deep femoral artery: Peak systolic velocity in the left deep femoral artery is 130 cm/s. Biphasic waveform. Left superficial femoral artery: Peak systolic velocity in the left superficial femoral artery is 124 cm/s. Biphasic waveform. Left popliteal artery: Peak systolic velocity in the left popliteal artery is 116 cm/s. Biphasic waveform. Left calf/foot arteries: Peak systolic velocity in the left posterior tibial artery is 92 cm/s. Biphasic waveform. Peak systolic velocity in the left peroneal artery is 87 cm/s. Biphasic waveform. Peak systolic velocity in the left anterior tibial artery is 96 cm/s. Biphasic waveform. Peak systolic velocity in the left dorsalis pedis artery is 83 cm/s. Monophasic to biphasic waveform. Other arteries: Right ankle-brachial index (RAKEL) is 0.9. Left ankle- brachial index (RAKEL) is 0.86. Soft tissues: Unremarkable. IMPRESSION: 1. Right ankle-brachial index (RAKEL) is 0.9. Findings are borderline for peripheral arterial disease (PAD). 2. Left ankle-brachial index (RAKEL) is 0.86. Findings are consistent with mild peripheral arterial disease (PAD). Electronically signed by: Real Ramirez MD 03/14/25 22:20 PM
[2025-03-14 22:40] LABS: Appearance Urine Clear (Clear); Glucose Urine UA 3+ (Negative)
[2025-03-14] MEDS: CEFEPIME 2000MG 2,000 MG/20 ML SYR IV SCH (22:56)
[2025-03-15] MEDS: VANCOMYCIN HCL 1,250 MG in SODIUM CHLORIDE 0.9% 250 ML IV SCH ×2 (03:52→11:17)
[2025-03-15 06:34] LABS: Hematocrit (blood only) 38.7 % (42.0-52.0); Hemoglobin 11.3 g/dl (14.0-18.0); Mean Corpuscular Hemoglobin 16.7 pg (25.0-34.0); Mean Corpuscular Volume 57.3 fL (80.0-100.0); Platelet Count 262 K/uL (130-400); RDW Standard Deviation 33.4 fL (36.4-46.3); Red Blood Count 6.75 M/uL (4.70-6.10); White Blood Count 6.03 K/ul (4.8-10.8)
[2025-03-15 06:57] LABS: Anion Gap 14.0 (3-11); Blood Urea Nitrogen 18.0 mg/dl (6-23); Calcium 8.5 mg/dl (8.6-10.3); Carbon Dioxide 16.0 mmol/L (21-32); Chloride 105.0 mmol/L (98-107); Creatinine Clr Calc Pharmacy 142.5 ml/min; Glucose 124.0 mg/dl (70-99(Fasting)); Potassium 4.5 mmol/L (3.5-5.1); Sodium 135.0 mmol/L (136-145)
[2025-03-15 07:10] LABS: Hemoglobin A1C 10.1 % (4.5-5.6)
[2025-03-15 07:14] LABS: Thyroid Stimulating Hormone 5.02 uIu/ml (0.300-4.500)
--- NOTE | 2025-03-15 10:17 | Pharmacy Report ---
Pharmacy PK ABX Note - Date of Service March 15, 2025 - Assessment and Plan Assessment 44 year old M receiving cefepime/vancomycin for treatment of diabetic foot ulcer/cellulits. Pertinent microbiologic data includes: blood cultures pending, wound culture ordered (not yet collected). Anaerobic coverage need with diabetic foot infection d/w with hospitalist, hospitalist to adjust coverage. Renal function improved today, will change vancomycin frequency from Q12H to Q8H. Day # 1 of antimicrobial therapy. Plan Vancomycin * Loading dose: 2500 mg IV x 1 * Maintenance dose: 1250 mg IV every 8 hours * Regimen is predicted to achieve target AUC/ERIC of 400-600 mg/L.hr * Trough level ordered for: 03/16/25 at 0330. Pharmacy will continue to follow and will adjust dose/frequency as necessary. Thank you. Pharmacy has transitioned to AUC monitoring for vancomycin. AUC/ERIC is the preferred PK/PD target and is associated with decreased risk of nephrotoxicity compared to traditional trough targets.
--- NOTE | 2025-03-15 12:05 | Electrocardiogram Report ---
Test Reason : Blood Pressure : */* mmHG Vent. Rate : 109 BPM Atrial Rate : 109 BPM P-R Int : 140 ms QRS Dur : 92 ms QT Int : 356 ms P-R-T Axes : 66 103 38 degrees QTcB Int : 479 ms Sinus tachycardia Rightward axis Borderline ECG No previous ECGs available Confirmed by Otf Pacheco ([id number]) on 03/15/2025 12:04:53 PM Referred By: Eloy Pearson Confirmed By: Otf Pacheco
--- NOTE | 2025-03-15 14:14 | Podiatry Progress Note ---
Date of Service March 15, 2025 Assessment & Plan (1) Cellulitis of toe of right foot: (2) Gangrene of toe of right foot: (3) Type 2 diabetes mellitus: (4) Diabetic ulcer of toes of both feet: Plan Diabetic ulcer of the left hallux and fourth toe: - 3 views bilateral foot plain film radiograph 03/14/2025: No radiographic signs of osteomyelitis to the toes. Findings consistent with Charcot neuroarthropathy of the midfoot bilateral. - Bilateral lower extremity arterial ultrasound 03/14/2025: Right ankle- brachial index (RAKEL) is 0.9. Findings are borderline for peripheral arterial disease (PAD). Left ankle-brachial index (RAKEL) is 0.86. Findings are consistent with mild peripheral arterial disease (PAD). - Blood culture x 2 03/14/2025: No growth 24 hours Plan: 1. Dry gangrene right fourth toe with local cellulitis of the right foot. Patient has been able to contact his family and is decided to move forward with amputation of the right fourth toe. He has persistent erythema and edema at the base of the digit on evaluation today. Discussed risks and benefits of the procedure including but not limited to slow wound healing, nonhealing wound, continued infection, need for further surgery, need for further amputation and/or loss of limb. Will continue IV antibiotics and daily application of Betadine over the weekend with plan to move forward with single-stage amputation of the right fourth toe 03/18/2025 at 7 AM. Patient will be n.p.o. at midnight on Tuesday. - No open wound or active drainage to enable collection of culture. - Continue postop shoe for the right foot. 2. Diabetic ulcer left great toe local soft tissue infection. - Dressing change once daily with Aquacel Ag and a dry sterile dressing. - Consult placed with orthotics department to be fit with high tide Cam walker with offloading to the left foot. - Culture drainage from left great toe wound: 03/14/2025: Pending Thank you for consulting podiatry today in the care of this patient. Will continue to follow while he remains in house and recommend close follow-up in the wound care center following discharge. Admission and Anticipated Discharge Date Admission Date: March 14, 2025 Subjective Patient seen resting comfortably in hospital bed with 2 jail guards and nurse present at bedside. Denies nausea vomiting fever chills since last seen. He did have an opportunity to speak with his family and at this point he has decided to move forward with amputation of the right fourth toe treatment of gangrenous digit. Continue antibiotic therapy and once daily application of Betadine to the right fourth toe over the weekend as gangrene is quite stable and hope that the soft tissue envelope at the proximal digit will improve allowing for single-stage procedure. Patient scheduled for right fourth toe amputation 03/18/2025 at 7 AM. Review of Systems Review of Systems: Positive for malaise and headaches. Patient denies vomiting fever chills shortness of breath chest pain. Denies pain in the bilateral foot. Reports longstanding neuropathy to the bilateral foot. Review of systems negative unless otherwise stated in HPI. Physical Exam Physical Exam: Const: Appears well developed and well nourished. No signs of acute distress present. CV: Extremities: No cyanosis Capillary refill time is less than 2 seconds all digits of the bilateral foot. Posterior tibial and dorsalis pedis pulses are palpable bilateral. Lymph: No palpable or visible regional lymphadenopathy. Neuro: Loss of protective sensation bilateral foot Psych: Mood/Affect: Mood is normal. Affect is normal. Cognition: Orientation is intact to person, place and time. Focused lower extremity musculoskeletal exam: Leg: No pain with compression of the calf muscle. Ankles: Normal to inspection and palpation. No swelling bilaterally. No tenderness bilaterally. Motor strength is intact. Range of motion pain-free and unlimited. Feet: Bilateral Charcot neuroarthropathy with deformity of the midfoot and loss of medial arch height. Ulcer #1: Right fourth toe dry gangrene. Cellulitis extending from the base of the fourth toe to the level of the dorsal midfoot is marked with purple marker. Ulcer #2: Left great toe: Wound of the great toe is relatively superficial limited to breakdown in skin with large open area and early eschar to the plantar distal aspect of the toe. No active drainage. There is a small bullous area just proximal to the primary wound which is opened and drainage is cultured. This area is also limited to breakdown of skin. Mild erythema and edema to the left great toe without lymphangitis or streaking. Results & Data Results & Data Vital Signs (Past 12 Hours) Vital Signs Temp Pulse Resp BP Pulse Ox O2 Del Method 03/15/25 10:52 36.7 C 98 H 18 151/90 H 96 Room Air 03/15/25 07:15 36.9 C 88 19 129/74 97 Room Air 03/15/25 02:36 36.5 C 104 H 16 136/85 96 Room Air Coding Level of Care Code 27506 SUB INP/OBS CARE MIN Diagnoses Cellulitis of toe of right foot L03.031 Gangrene of toe of right foot I96 Type 2 diabetes mellitus E11.69 Diabetes mellitus complication status: with other specified complication Diabetes mellitus prison insulin use: without prison use Diabetic ulcer of toes of both feet E11.621; L97.519; L97.529 (3) Type 2 diabetes mellitus Diabetes mellitus complication status: with other specified complication Diabetes mellitus prison insulin use: without termite treater use Qualified Code(s): E11.69 - Type 2 diabetes mellitus with other specified complication
--- NOTE | 2025-03-15 16:44 | Hospitalist Progress Note ---
Date of Service March 15, 2025 Assessment & Plan (1) Diabetic ulcer of toes of both feet: (2) Cellulitis of toe of right foot: (3) Type 2 diabetes mellitus: (4) Hypertension: (5) Hyperlipidemia: (6) Hypothyroidism: (7) Sleep apnea: Plan Mr. Puckett is a 44 year old gentleman at [facility] [place] facility with PMH significant for type 2 diabetes, hypertension, hyperlipidemia, hypothyroidism, sleep apnea, admitted on 03/14/2025 for nonhealing diabetic foot ulcers. Plan for 4th ray amputation on RLE on Tuesday #Dry gangrene of right fourth toe #Cellulitis #Mild PAD #Bilateral Charcot neuroarthropathy Patient presents with ulcer of left great toe and ulcer/necrosis of right fourth toe No leukocytosis, lactate/procal WNL, afebrile, vitals stable - no concern for sepsis at this time X-ray without evidence of osteomyelitis Reviewed dopplers on 03/14, c/w PAD Continue antibiotics (vanco, zosyn for now) MRSA ordered post op show for RLE plan for npo midnight Tuesday #Left great hallux diabetic foot ulcer plan for CAM walker for left foot culture pending from left wound podiatry following #Type 2 diabetes Patient states diagnosed in 2019, A1C 10.1% Blood glucose 264 - per records has been >200 for the last few days On metformin and Jardiance - holding while inpatient Continue SSI inpatient Anion gap of 19--resolving CTM #Hyponatremia resolving Na 129 on admission Likely due to poor PO intake/dehydration improving, encourgae po #Hypertension Continue lisinopril #Hyperlipidemia Continue rosuvastatin #Hypothyroidism On levothyroxine per patient but not per records from [facility] [place] Called and talked to Dr Madera who spoke with his pharmacy and noted levothyroxine is not prescribed for patient TSH elevated at 5.020 reports being on 200mcg synthroid, ft4 at 0.82 will start 75mcg daily with plans for repeat in 4-6 weeks assuming proper administration DVT Prophylaxis: SCDs d/t possible procedure Code Status: FULL CODE - As per discussion at bedside with the patient. PCP: RYDER Disposition: dispo likely next week s/p amputation of 4th digit Admission and Anticipated Discharge Date Admission Date: March 14, 2025 Subjective NAEO reports feeling like [facility] he denies any pain or concerns at this time--reports notable stress given toe and possible amputation Physical Exam Constitutional: WD/WN, vitals as above Respiratory: normal respiratory effort, lungs clear to auscultation Cardiovascular: RRR, no murmur, no edema Musculoskeletal: right fourth toe with blueish discoloration and skin maceration, left great hallux with superficial ulcerations Results & Data Results & Data Vital Signs (Past 12 Hours) Vital Signs Temp Pulse Pulse Resp BP Pulse Ox O2 Del Method 03/15/25 14:47 36.5 C 97 H 18 104/70 97 Room Air 03/15/25 14:00 90 03/15/25 10:52 36.7 C 98 H 18 151/90 H 96 Room Air 03/15/25 07:15 36.9 C 88 19 129/74 97 Room Air Laboratory Results Short CBC 03/15/25 Range/Units 06:10 WBC 6.03 (4.8-10.8) K/ul Hgb 11.3 L (14.0-18.0) g/dl Hct 38.7 L (42.0-52.0) % Plt Count 262 (130-400) K/uL BMP 03/14/25 03/15/25 19:56 06:10 Sodium 134 L 135 L Potassium 4.7 4.5 Chloride 103 105 Carbon Dioxide 15 L 16 L BUN 19 18 Creatinine 1.02 D 0.89 Glucose 200 H 124 H Calcium 8.5 L 8.5 L Urine 03/14/25 Range/Units Unknown Urine Color Yellow Urine Appearance Clear (Clear) Urine pH 5.5 (4.5-7.5) Ur Specific [place] 1.024 (1.000-1.030) Urine Protein Negative (Negative) Urine Glucose (UA) 3+ H (Negative) Medications Administered Home Medications Medication Instructions Recorded Confirmed Last Taken cephalexin 500 mg capsule 500 mg PO BID 03/14/25 03/14/25 03/14/25 07:00 clotrimazole 1 % topical cream 1 applic topical BID 03/14/25 03/14/25 03/07/25 duloxetine 20 mg capsule,delayed 20 mg PO QPM 03/14/25 03/14/25 03/13/25 release sprinkle empagliflozin 25 mg tablet 25 mg PO DAILY 03/14/25 03/14/25 03/14/25 (Jardiance) hydroxyzine pamoate 25 mg capsule 25 mg PO QPM 03/14/25 03/14/25 03/13/25 insulin regular human 100 unit/mL 1 sliding scale dose subcut 03/14/25 03/14/25 03/14/25 injection solution (Humulin R USEASDIRECTD Regular U-100 Insulin) lisinopril 10 mg tablet 10 mg PO DAILY 03/14/25 03/14/25 03/14/25 metformin 1,000 mg tablet 1,000 mg PO BID 03/14/25 03/14/25 03/05/25 rosuvastatin 10 mg tablet 10 mg PO QPM 03/14/25 03/14/25 03/13/25 Active Medications Generic Name Dose Route Start Last Admin Trade Name Mateoq PRN Reason Stop Dose Admin Duloxetine HCl 20 mg 03/14/25 21:00 03/14/25 21:45 Duloxetine Hcl 20 Mg Cap PO 04/13/25 20:59 20 mg QPM FEI Administration Sodium Chloride 1,000 mls @ 65 mls/hr 03/14/25 17:00 03/15/25 13:22 Nss IV 03/15/25 23:37 65 mls/hr .[id number] FEI Administration Cefepime HCl 2,000 mg in 20 mls @ 5 mls/min 03/14/25 23:00 03/15/25 16:10 Maxipime 2000mg IV 03/21/25 22:59 5 mls/min Q8H FEI Administration Protocol Vancomycin HCl 1,250 mg/ 275 mls @ 200 mls/hr 03/15/25 12:00 03/15/25 13:01 Sodium Chloride IV 03/22/25 11:59 Infused Q8H FEI Infusion Insulin Aspart 0 units 03/14/25 21:00 03/15/25 11:12 Insulin Aspart Per Unit Charge SC 04/13/25 20:59 Not Given ACHS FEI Lactobacillus Acidophilus 1,250 mg 03/14/25 21:00 03/15/25 08:08 Advanced Probiotic 625 Mg Capsule PO 04/13/25 20:59 1,250 mg DAILY FEI Administration Lisinopril 10 mg 03/15/25 09:00 03/15/25 08:08 Lisinopril 10 Mg Tab PO 04/14/25 08:59 10 mg DAILY FEI Administration Rosuvastatin Calcium 10 mg 03/14/25 21:00 03/14/25 21:45 Rosuvastatin Calcium 10 Mg Tab PO 04/13/25 20:59 10 mg QPM FEI Administration (3) Type 2 diabetes mellitus Diabetes mellitus complication status: with other specified complication Diab etes mellitus termite exterminator insulin use: without termite exterminator use Qualified Code(s): E11.69 - Type 2 diabetes mellitus with other specified complication
[2025-03-16] MEDS: VANCOMYCIN LEVEL ONE (04:20)
[2025-03-16] MEDS: LEVOTHYROXINE SODIUM 75 MCG TABLET PO SCH (06:07)
[2025-03-16 06:45] LABS: Hematocrit (blood only) 39.2 % (42.0-52.0); Hemoglobin 11.4 g/dl (14.0-18.0); Mean Corpuscular Hemoglobin 16.6 pg (25.0-34.0); Mean Corpuscular Volume 57.2 fL (80.0-100.0); Platelet Count 291 K/uL (130-400); RDW Standard Deviation 33.5 fL (36.4-46.3); Red Blood Count 6.85 M/uL (4.70-6.10); White Blood Count 6.38 K/ul (4.8-10.8)
[2025-03-16 07:11] LABS: Anion Gap 16.0 (3-11); Blood Urea Nitrogen 16.0 mg/dl (6-23); Calcium 8.7 mg/dl (8.6-10.3); Carbon Dioxide 14.0 mmol/L (21-32); Chloride 104.0 mmol/L (98-107); Creatinine Clr Calc Pharmacy 156.4 ml/min; Glucose 117.0 mg/dl (70-99(Fasting)); Magnesium 1.7 mg/dl (1.7-2.4); Potassium 4.5 mmol/L (3.5-5.1); Sodium 134.0 mmol/L (136-145)
--- NOTE | 2025-03-16 07:49 | Hospitalist Progress Note ---
Date of Service March 16, 2025 Assessment & Plan (1) Diabetic ulcer of toes of both feet: (2) Cellulitis of toe of right foot: (3) Type 2 diabetes mellitus: (4) Hypertension: (5) Hyperlipidemia: (6) Hypothyroidism: (7) Sleep apnea: Plan Mr. Puckett is a 44 year old gentleman at [facility] facility with PMH significant for type 2 diabetes, hypertension, hyperlipidemia, hypothyroidism, sleep apnea, admitted on 03/14/2025 for nonhealing diabetic foot ulcers. Plan for 4th ray amputation on RLE on Tuesday #Euglycemic DKA iso low ph, ketones in urine, elevated gap, low bicarb #Anion gap metabolic acidosis no renal dysfunction noted lactate on admission wnl, reports of +/- mild dka on admission, ketones + on admission, s/p IVF and insulin potentially iso dry gangrene contributing lactate 0.7 plan to start DKA protocol given acidosis and ketones on admission, also on Jardiance prior to admission discussed case with pharmacy #Microcytic anemia MCV 57.2, likely multifactorial anemia labs, optimize preoperatively as able #Dry gangrene of right fourth toe #Cellulitis #Mild PAD #Bilateral Charcot neuroarthropathy Patient presents with ulcer of left great toe and ulcer/necrosis of right fourth toe No leukocytosis, lactate/procal WNL, afebrile, vitals stable - no concern for sepsis at this time X-ray without evidence of osteomyelitis Reviewed dopplers on 03/14, c/w PAD Continue antibiotics (vanco, zosyn for now) MRSA ordered post op show for RLE plan for npo midnight Tuesday #Left great hallux diabetic foot ulcer plan for CAM walker for left foot culture pending from left wound podiatry following #Type 2 diabetes Patient states diagnosed in 2019, A1C 10.1% Blood glucose 264 - per records has been >200 for the last few days On metformin and Jardiance - holding while inpatient Continue SSI inpatient Anion gap of 19--resolving CTM #Hyponatremia resolving Na 129 on admission Likely due to poor PO intake/dehydration improving, encourgae po #Hypertension Continue lisinopril #Hyperlipidemia Continue rosuvastatin #Hypothyroidism On levothyroxine per patient but not per records from [facility] Called and talked to Dr Madera who spoke with his pharmacy and noted levothyroxine is not prescribed for patient TSH elevated at 5.020 reports being on 200mcg synthroid, ft4 at 0.82 will start 75mcg daily with plans for repeat in 4-6 weeks assuming proper administration DVT Prophylaxis: SCDs d/t possible procedure Code Status: FULL CODE - As per discussion at bedside with the patient. PCP: RYDER Disposition: dispo likely next week s/p amputation of 4th digit Admission and Anticipated Discharge Date Admission Date: March 14, 2025 Subjective NAEO patient with flat affect--denies any concerns outside of feeling tired denies pain, nausea, vomiting, or other concerns at this time quickly replaced earplug and rolled over to sleep Physical Exam Constitutional: WD/WN, vitals as above Respiratory: normal respiratory effort, lungs clear to auscultation Cardiovascular: RRR, no murmur, no edema Gastrointestinal (Abdomen): normal bowel sounds, soft, nontender, no hepatosplenomegaly Results & Data Results & Data Vital Signs (Past 12 Hours) Vital Signs Temp Pulse Pulse Pulse Resp BP Pulse Ox 03/16/25 06:58 36.4 C L 86 16 120/69 98 03/16/25 04:10 36.7 C 91 H 16 125/74 98 03/15/25 23:18 36.7 C 96 H 18 140/86 97 03/15/25 21:50 80 03/15/25 19:54 36.6 C 98 H 19 141/86 H 98 O2 Del Method 03/16/25 06:58 Room Air 03/16/25 04:10 Room Air 03/15/25 23:18 Room Air 03/15/25 21:50 03/15/25 19:54 Room Air Laboratory Results Short CBC 03/16/25 Range/Units 05:58 WBC 6.38 (4.8-10.8) K/ul Hgb 11.4 L (14.0-18.0) g/dl Hct 39.2 L (42.0-52.0) % Plt Count 291 (130-400) K/uL BMP 03/16/25 05:58 Sodium 134 L Potassium 4.5 Chloride 104 Carbon Dioxide 14 L BUN 16 Creatinine 0.83 Glucose 117 H Calcium 8.7 Medications Administered Home Medications Medication Instructions Recorded Confirmed Last Taken cephalexin 500 mg capsule 500 mg PO BID 03/14/25 03/14/25 03/14/25 07:00 clotrimazole 1 % topical cream 1 applic topical BID 03/14/25 03/14/25 03/07/25 duloxetine 20 mg capsule,delayed 20 mg PO QPM 03/14/25 03/14/25 03/13/25 release sprinkle empagliflozin 25 mg tablet 25 mg PO DAILY 03/14/25 03/14/25 03/14/25 (Jardiance) hydroxyzine pamoate 25 mg capsule 25 mg PO QPM 03/14/25 03/14/25 03/13/25 insulin regular human 100 unit/mL 1 sliding scale dose subcut 03/14/25 03/14/25 03/14/25 injection solution (Humulin R USEASDIRECTD Regular U-100 Insulin) lisinopril 10 mg tablet 10 mg PO DAILY 03/14/25 03/14/25 03/14/25 metformin 1,000 mg tablet 1,000 mg PO BID 03/14/25 03/14/25 03/05/25 rosuvastatin 10 mg tablet 10 mg PO QPM 03/14/25 03/14/25 03/13/25 Active Medications Generic Name Dose Route Start Last Admin Trade Name Freq PRN Reason Stop Dose Admin Duloxetine HCl 20 mg 03/14/25 21:00 03/15/25 20:41 Duloxetine Hcl 20 Mg Cap PO 04/13/25 20:59 20 mg QPM FEI Administration Cefepime HCl 2,000 mg in 20 mls @ 5 mls/min 03/14/25 23:00 03/16/25 06:07 Maxipime 2000mg IV 03/21/25 22:59 5 mls/min Q8H FEI Administration Protocol Magnesium Sulfate/Dextrose 1 gm in 100 mls @ 50 mls/hr 03/16/25 07:45 03/16/25 10:02 Magnesium Sulfate / D5w IV 03/16/25 11:44 50 mls/hr Q2H FEI Administration Lactobacillus Acidophilus 1,250 mg 03/14/25 21:00 03/16/25 08:07 Advanced Probiotic 625 Mg Capsule PO 04/13/25 20:59 1,250 mg DAILY FEI Administration Levothyroxine Sodium 75 mcg 03/16/25 06:30 03/16/25 06:07 Levothyroxine Sodium 75 Mcg Tablet PO 04/15/25 06:29 75 mcg DAILYBB FEI Administration Lisinopril 10 mg 03/15/25 09:00 03/16/25 08:07 Lisinopril 10 Mg Tab PO 04/14/25 08:59 10 mg DAILY FEI Administration Mupirocin 1 appln 03/16/25 09:00 03/16/25 08:27 Mupirocin 2% Oint 22 Gm Tube EXT 04/15/25 08:59 1 appln BID FEI Administration Rosuvastatin Calcium 10 mg 03/14/25 21:00 03/15/25 20:41 Rosuvastatin Calcium 10 Mg Tab PO 04/13/25 20:59 10 mg QPM FEI Administration (3) Type 2 diabetes mellitus Diabetes mellitus complication status: with other specified complication Diabetes mellitus retirement insulin use: without ad terminal makeup operator use Qualified Code(s): E11.69 - Type 2 diabetes mellitus with other specified complication
[2025-03-16] MEDS: MAGNESIUM SULFATE / D5W 1 GM/100 ML BAG IV SCH (08:06)
[2025-03-16] MEDS: SODIUM CHLORIDE 0.9% 1,000 ML IV SCH (08:07)
[2025-03-16] MEDS: MUPIROCIN 2% OINT 22 GM TUBE EXT SCH (08:27)
[2025-03-16 08:28] LABS: Base Excess VBG -11.3 mEq/L; HCO3 VBG 14 mmol/L; Oxygen Saturation VBG 87.1 %; PCO2 VBG 30 mmHg (38-50); PO2 VBG 53 mmHg; pH VBG 7.28 (7.36-7.41)
[2025-03-16 08:47] LABS: Iron 66.0 mcg/dl (35-175); Total Iron Binding Cap Calc 312.0 mcg/dl (250-450); Transferrin 223.0 mg/dl (200-360); Transferrin (FE) Percent Satur 21.0 % (20-50)
[2025-03-16 09:07] LABS: Ferritin 200.3 ng/ml (8-388)
[2025-03-16 09:13] LABS: Folate (Folic Acid),Ser orPlas > 22.30 ng/ml (>5.38)
[2025-03-16 09:14] LABS: Vitamin B12 544 pg/ml (180-914)
--- NOTE | 2025-03-16 09:21 | Pharmacy Report ---
Pharmacy PK ABX Note - Date of Service March 16, 2025 - Assessment and Plan Assessment 03/16 * SCr steady today, 0.83. Random level this morning suggests low end of therapeutic range. Will adjust slightly to ensure therapeutic at steady state. 03/15 44 year old M receiving cefepime/vancomycin for treatment of diabetic foot ulcer/cellulits. Pertinent microbiologic data includes: blood cultures pending, wound culture ordered (not yet collected). Anaerobic coverage need with diabetic foot infection d/w with hospitalist, hospitalist to adjust coverage. Renal function improved today, will change vancomycin frequency from Q12H to Q8H. Day # 1 of antimicrobial therapy. Plan Vancomycin * Loading dose: 2500 mg IV x 1 * Maintenance dose: 1500 mg IV every 8 hours * Regimen is predicted to achieve target AUC/ERIC of 400-600 mg/L.hr * Trough level ordered for: 03/17 @ 1100 Pharmacy will continue to follow and will adjust dose/frequency as necessary. Thank you. Pharmacy has transitioned to AUC monitoring for vancomycin. AUC/ERIC is the preferred PK/PD target and is associated with decreased risk of nephrotoxicity compared to traditional trough targets.
[2025-03-16] MEDS ORDERED: STAT IV Infusion **Titration per Protocol STA (11:25)
[2025-03-16] MEDS ORDERED: PHARMACY GLYCEMIC MGMT CONSULT PRN (11:25)
[2025-03-16] MEDS ORDERED: [UNRECOGNIZED DRUG - REMARK] ONE (11:25)
[2025-03-16] MEDS ORDERED: PENDING D5 1/2NS+40mEq KCL IVF SCH (11:30)
[2025-03-16] MEDS: VANCOMYCIN HCL 1,500 MG in SODIUM CHLORIDE 0.9% 500 ML IV SCH (12:01)
[2025-03-16] MEDS: INSULIN ASPART PER UNIT CHARGE SC SCH (12:23)
[2025-03-16 12:30] LABS: Anion Gap 14.0 (3-11); Blood Urea Nitrogen 15.0 mg/dl (6-23); Calcium 8.6 mg/dl (8.6-10.3); Carbon Dioxide 16.0 mmol/L (21-32); Chloride 102.0 mmol/L (98-107); Creatinine Clr Calc Pharmacy 141.1 ml/min; Glucose 188.0 mg/dl (70-99(Fasting)); Magnesium 2.5 mg/dl (1.7-2.4); Potassium 4.1 mmol/L (3.5-5.1); Sodium 132.0 mmol/L (136-145)
[2025-03-16] MEDS: INSULIN REGULAR 250 UNITS in SODIUM CHLORIDE 0.9% 247.5 ML IV SCH (12:39)
[2025-03-16] MEDS: POTASSIUM CHLORIDE 40 MEQ in D5W AND 1/2NSS 1,000 ML IV SCH (12:41)
[2025-03-16 12:50] LABS: Appearance Urine Clear (Clear); Glucose Urine UA 3+ (Negative)
--- NOTE | 2025-03-16 14:12 | Pharmacy Report ---
Pharmacy Glycemic Short Note 2 - Date of Service March 16, 2025 - Glycemic Short BSG Results (Last 24 hours): 03/15/25 03/15/25 03/16/25 16:14 20:19 05:58 Glucose 117 H POC Glucose 98 153 H 03/16/25 03/16/25 03/16/25 07:07 11:20 11:51 Glucose 188 H POC Glucose 113 H 167 H 03/16/25 03/16/25 12:29 13:30 Glucose POC Glucose 155 H 151 H OUTPATIENT ANTIDIABETIC REGIMEN: * Jardiance 25mg po daily * metformin 1000mg po bid * Hunulin R sliding scale HbA1c: 10.1% on 03/15/25 ASSESSMENT: * Sergey is a 44 year old male who was admitted 03/14 with diabetic foot ulcers and cellulitis of the toe of the right foot. * Currently appears to be anion gap metabolic acidosis/euglycemic DKA. Anion gap has been elevated (14 currently) and CO2 low (16 currently)since admit and VBG pH is low. Urine was + glucose and ketones on admit and again today. Patient was also on Jardiance prior to admit. * Pharmacy was consulted and it was decided to start an insulin drip at 0.05 units/kg/hr. D5 1/2ns + 40kcl/L was also ordered at this time. PLAN FOR INPATIENT GLYCEMIC CONTROL: * Hold outpatient diabetes medications * Basal insulin * insulin drip for DKA starting at 6 units/hr (0.05 units/kg/hr) and titrate based on BSG * Bolus insulin * NovoLog per scale ACHS or Q6hrs while NPO * Goal Range: Low 140 mg/dL - High 200 mg/dL
[2025-03-16 16:26] LABS: Anion Gap 12.0 (3-11); Blood Urea Nitrogen 15.0 mg/dl (6-23); Calcium 8.8 mg/dl (8.6-10.3); Carbon Dioxide 18.0 mmol/L (21-32); Chloride 103.0 mmol/L (98-107); Creatinine Clr Calc Pharmacy 149.2 ml/min; Glucose 195.0 mg/dl (70-99(Fasting)); Magnesium 2.0 mg/dl (1.7-2.4); Potassium 4.5 mmol/L (3.5-5.1); Sodium 133.0 mmol/L (136-145)
[2025-03-16] MEDS: ACETAMINOPHEN 325 MG TAB PO PRN (19:38)
[2025-03-16 19:43] LABS: Anion Gap 12.0 (3-11); Blood Urea Nitrogen 14.0 mg/dl (6-23); Calcium 8.7 mg/dl (8.6-10.3); Carbon Dioxide 18.0 mmol/L (21-32); Chloride 104.0 mmol/L (98-107); Creatinine Clr Calc Pharmacy 149.2 ml/min; Glucose 207.0 mg/dl (70-99(Fasting)); Magnesium 2.0 mg/dl (1.7-2.4); Potassium 4.6 mmol/L (3.5-5.1); Sodium 134.0 mmol/L (136-145)
[2025-03-16 23:42] LABS: Anion Gap 11.0 (3-11); Blood Urea Nitrogen 13.0 mg/dl (6-23); Calcium 8.8 mg/dl (8.6-10.3); Carbon Dioxide 19.0 mmol/L (21-32); Chloride 105.0 mmol/L (98-107); Creatinine Clr Calc Pharmacy 145.9 ml/min; Glucose 162.0 mg/dl (70-99(Fasting)); Magnesium 1.9 mg/dl (1.7-2.4); Potassium 4.5 mmol/L (3.5-5.1); Sodium 135.0 mmol/L (136-145)
[2025-03-17] MEDS: MELATONIN 3 MG TAB PO PRN (00:54)
[2025-03-17 04:35] LABS: Creatinine Clr Calc Pharmacy 166.4 ml/min
[2025-03-17 04:57] LABS: Anion Gap 10.0 (3-11); Blood Urea Nitrogen 10.0 mg/dl (6-23); Calcium 8.6 mg/dl (8.6-10.3); Carbon Dioxide 19.0 mmol/L (21-32); Chloride 106.0 mmol/L (98-107); Creatinine Clr Calc Pharmacy 170.8 ml/min; Glucose 148.0 mg/dl (70-99(Fasting)); Magnesium 1.7 mg/dl (1.7-2.4); Potassium 4.1 mmol/L (3.5-5.1); Sodium 135.0 mmol/L (136-145)
[2025-03-17 08:20] LABS: Anion Gap 7.0 (3-11); Blood Urea Nitrogen 9.0 mg/dl (6-23); Calcium 8.3 mg/dl (8.6-10.3); Carbon Dioxide 21.0 mmol/L (21-32); Chloride 107.0 mmol/L (98-107); Creatinine Clr Calc Pharmacy 166.4 ml/min; Glucose 159.0 mg/dl (70-99(Fasting)); Magnesium 1.6 mg/dl (1.7-2.4); Potassium 4.3 mmol/L (3.5-5.1); Sodium 135.0 mmol/L (136-145)
[2025-03-17] MEDS: LANTUS PER UNIT CHARGE SQ ONE (09:32)
--- NOTE | 2025-03-17 09:42 | Hospitalist Progress Note ---
Date of Service March 17, 2025 Assessment & Plan (1) Diabetic ulcer of toes of both feet: (2) Cellulitis of toe of right foot: (3) Type 2 diabetes mellitus: (4) Hypertension: (5) Hyperlipidemia: (6) Hypothyroidism: (7) Sleep apnea: Plan Mr. Puckett is a 44 year old gentleman at [facility] with PMH significant for type 2 diabetes, hypertension, hyperlipidemia, hypothyroidism, sleep apnea, admitted on 03/14/2025 for nonhealing diabetic foot ulcers. Patient initally presented with gap acidosis that seemingly improved with fluid resuscitation, however, gap remained with low bicarb. Urine with ketones. Therefore, DKA protocol initiated with noted closure of gap and resolution of acidosis. Patient aslo seemingly more awake and communicative today. Discontinue insulin drip and D5 and convert to subq insulin today. Denies any new symptoms. Plan for NPO tonight for 4th ray amputation on RLE on Tuesday #Euglycemic DKA iso low ph, ketones in urine, elevated gap, low bicarb *resolved #Anion gap metabolic acidosis resolved no renal dysfunction noted lactate on admission wnl, reports of +/- mild dka on admission, ketones + on admission, s/p IVF and insulin potentially iso dry gangrene contributing lactate 0.7 discontinue dka protocol with insulin drip and d51/2ns transition to subq insulin per glycemic pharmacy #Microcytic anemia MCV 57.2, likely multifactorial anemia labs ferritin 200, iron 66, b12, folate wnl , given microcytosis could consider follow up as OP for other investigation of perhaps genetic causes of anemia (? thalassemia) no signs of acute hemolysis or other means to optimize preoperatively cbc in am #Dry gangrene of right fourth toe #Cellulitis #Mild PAD #Bilateral Charcot neuroarthropathy Patient presents with ulcer of left great toe and ulcer/necrosis of right fourth toe No leukocytosis, lactate/procal WNL, afebrile, vitals stable - no concern for sepsis at this time X-ray without evidence of osteomyelitis Reviewed dopplers on 03/14, c/w PAD Continue antibiotics (vanco, zosyn for now) MRSA + post op shoe for RLE plan for npo midnight Tuesday #Left great hallux diabetic foot ulcer plan for CAM walker for left foot culture pending from left wound podiatry following #Type 2 diabetes Patient states diagnosed in 2019, A1C 10.1% Blood glucose 264 - per records has been >200 for the last few days On metformin and Jardiance - holding while inpatient Continue SSI inpatient #Hyponatremia resolving Na 129 on admission Likely due to poor PO intake/dehydration and likely DKA contributing improving, encourgae po #Hypertension Continue lisinopril #Hyperlipidemia Continue rosuvastatin #Hypothyroidism On levothyroxine per patient but not per records from [facility] Called and talked to Dr Madera who spoke with his pharmacy and noted levothyroxine is not prescribed for patient TSH elevated at 5.020 reports being on 200mcg synthroid, ft4 at 0.82 continue 75mcg daily with plans for repeat in 4-6 weeks assuming proper administration DVT Prophylaxis: SCDs d/t possible procedure Code Status: FULL CODE - As per discussion at bedside with the patient. PCP: [facility] Disposition: dispo likely next week s/p amputation of 4th digit Admission and Anticipated Discharge Date Admission Date: March 14, 2025 Subjective NAEO Gap closed on labs and bicard wnl More communicative today on exam and sitting upright eating breakfast denies any acute concerns, reports understanding of amputation tomorrow Physical Exam Constitutional: WD/WN, vitals as above Respiratory: normal respiratory effort, lungs clear to auscultation Cardiovascular: RRR, no murmur, no edema Musculoskeletal: no cyanosis or clubbing, extremities motor strength 5/5 Results & Data Results & Data Vital Signs (Past 12 Hours) Vital Signs Temp Pulse Pulse Pulse Resp BP BP 03/17/25 07:29 36.6 C 81 18 145/87 H 03/17/25 04:34 36.6 C 88 16 136/86 03/16/25 23:39 36.7 C 84 17 144/89 H 03/16/25 22:02 81 Pulse Ox O2 Del Method 03/17/25 07:29 97 Room Air 03/17/25 04:34 96 Room Air 03/16/25 23:39 99 Room Air 03/16/25 22:02 Laboratory Results BMP 03/16/25 03/16/25 03/16/25 11:51 15:49 19:08 Sodium 132 L 133 L 134 L Potassium 4.1 4.5 4.6 Chloride 102 103 104 Carbon Dioxide 16 L 18 L 18 L BUN 15 15 14 Creatinine 0.92 0.87 0.87 Glucose 188 H 195 H 207 H Calcium 8.6 8.8 8.7 03/16/25 03/17/25 03/17/25 23:03 03:39 03:39 Sodium 135 L 135 L Potassium 4.5 4.1 Chloride 105 106 Carbon Dioxide 19 L 19 L BUN 13 10 Creatinine 0.89 0.78 0.76 Glucose 162 H 148 H Calcium 8.8 8.6 03/17/25 07:23 Sodium 135 L Potassium 4.3 Chloride 107 Carbon Dioxide 21 BUN 9 Creatinine 0.78 Glucose 159 H Calcium 8.3 L Urine 03/16/25 Range/Units 10:50 Urine Color Yellow Urine Appearance Clear (Clear) Urine pH 5.5 (4.5-7.5) Ur Specific [place] 1.028 (1.000-1.030) Urine Protein Negative (Negative) Urine Glucose (UA) 3+ H (Negative) Medications Administered Home Medications Medication Instructions Recorded Confirmed Last Taken cephalexin 500 mg capsule 500 mg PO BID 03/14/25 03/14/25 03/14/25 07:00 clotrimazole 1 % topical cream 1 applic topical BID 03/14/25 03/14/25 03/07/25 duloxetine 20 mg capsule,delayed 20 mg PO QPM 03/14/25 03/14/25 03/13/25 release sprinkle empagliflozin 25 mg tablet 25 mg PO DAILY 03/14/25 03/14/25 03/14/25 (Jardiance) hydroxyzine pamoate 25 mg capsule 25 mg PO QPM 03/14/25 03/14/25 03/13/25 insulin regular human 100 unit/mL 1 sliding scale dose subcut 03/14/25 03/14/25 03/14/25 injection solution (Humulin R USEASDIRECTD Regular U-100 Insulin) lisinopril 10 mg tablet 10 mg PO DAILY 03/14/25 03/14/25 03/14/25 metformin 1,000 mg tablet 1,000 mg PO BID 03/14/25 03/14/25 03/05/25 rosuvastatin 10 mg tablet 10 mg PO QPM 03/14/25 03/14/25 03/13/25 Active Medications Generic Name Dose Route Start Last Admin Trade Name Mateoq PRN Reason Stop Dose Admin Acetaminophen 650 mg 03/14/25 18:26 03/16/25 19:38 Acetaminophen 325 Mg Tab PO 04/13/25 18:25 650 mg Q4H PRN Administration pain/fever Duloxetine HCl 20 mg 03/14/25 21:00 03/16/25 21:47 Duloxetine Hcl 20 Mg Cap PO 04/13/25 20:59 20 mg QPM FEI Administration Cefepime HCl 2,000 mg in 20 mls @ 5 mls/min 03/14/25 23:00 03/17/25 07:16 Maxipime 2000mg IV 03/21/25 22:59 5 mls/min Q8H FEI Administration Protocol Vancomycin HCl 1,500 mg/ 530 mls @ 200 mls/hr 03/16/25 12:00 03/17/25 07:17 Sodium Chloride IV 03/23/25 11:59 Infused Q8H FEI Infusion Insulin Human Regular 250 250 mls @ 3.2 mls/hr 03/16/25 12:30 03/16/25 12:39 units/ Sodium Chloride IV 03/17/25 11:30 3.2 units/hr .Q24H FEI 3.2 mls/hr Administration Protocol 3.2 UNITS/HR Insulin Aspart 0 units 03/16/25 11:30 03/17/25 08:23 Insulin Aspart Per Unit Charge SC 03/17/25 11:29 Not Given ACHS FEI Lactobacillus Acidophilus 1,250 mg 03/14/25 21:00 03/17/25 09:33 Advanced Probiotic 625 Mg Capsule PO 04/13/25 20:59 1,250 mg DAILY FEI Administration Levothyroxine Sodium 75 mcg 03/16/25 06:30 03/17/25 06:55 Levothyroxine Sodium 75 Mcg Tablet PO 04/15/25 06:29 75 mcg DAILYBB FEI Administration Lisinopril 10 mg 03/15/25 09:00 03/17/25 09:33 Lisinopril 10 Mg Tab PO 04/14/25 08:59 10 mg DAILY FEI Administration Melatonin 6 mg 03/17/25 00:43 03/17/25 00:54 Melatonin 3 Mg Tab PO 04/16/25 00:42 6 mg HS PRN Administration Sleep Mupirocin 1 appln 03/16/25 09:00 03/17/25 09:34 Mupirocin 2% Oint 22 Gm Tube EXT 04/15/25 08:59 1 appln BID FEI Administration Rosuvastatin Calcium 10 mg 03/14/25 21:00 03/16/25 21:47 Rosuvastatin Calcium 10 Mg Tab PO 04/13/25 20:59 10 mg QPM FEI Administration (3) Type 2 diabetes mellitus Diabetes mellitus complication status: with other specified complication Diabetes mellitus continuous churn buttermaker insulin use: without continuous churn buttermaker use Qualified Code(s): E11.69 - Type 2 diabetes mellitus with other specified complication
[2025-03-17] MEDS: MAGNESIUM SULFATE / D5W 1 GM/100 ML BAG IV SCH (09:58)
[2025-03-17] MEDS: VANCOMYCIN LEVEL ONE (11:39)
[2025-03-17] MEDS: DC IV INSULIN INFUSION 1 EA DEVI ONE (11:39)
--- NOTE | 2025-03-17 11:57 | Pharmacy Report ---
Pharmacy PK ABX Note - Date of Service March 17, 2025 - Assessment and Plan Assessment 03/17 * Level 14.8 mcg/mL today, suggests therapeutic dosing. Will continue current. Toe culture with MRSA + grp B strep. Remains on cefepime + vancomycin. Scheduled for amputation 03/18. 03/16 * SCr steady today, 0.83. Random level this morning suggests low end of therapeutic range. Will adjust slightly to ensure therapeutic at steady state. 03/15 44 year old M receiving cefepime/vancomycin for treatment of diabetic foot ulcer/cellulits. Pertinent microbiologic data includes: blood cultures pending, wound culture ordered (not yet collected). Anaerobic coverage need with diabetic foot infection d/w with hospitalist, hospitalist to adjust coverage. Renal function improved today, will change vancomycin frequency from Q12H to Q8H. Day # 1 of antimicrobial therapy. Plan Vancomycin * Loading dose: 2500 mg IV x 1 * Maintenance dose: 1500 mg IV every 8 hours * Regimen is predicted to achieve target AUC/ERIC of 400-600 mg/L.hr * Level in 2-3 days or with significant renal change Pharmacy will continue to follow and will adjust dose/frequency as necessary. Thank you. Pharmacy has transitioned to AUC monitoring for vancomycin. AUC/ERIC is the preferred PK/PD target and is associated with decreased risk of nephrotoxicity compared to traditional trough targets.
[2025-03-17] MEDS: INSULIN ASPART PER UNIT CHARGE SC SCH (12:27)
--- NOTE | 2025-03-17 14:36 | Pharmacy Report ---
Pharmacy Glycemic Short Note 2 - Date of Service March 17, 2025 - Glycemic Short BSG Results (Last 24 hours): 03/16/25 03/16/25 03/16/25 14:35 15:49 16:28 Glucose 195 H POC Glucose 164 H 198 H 03/16/25 03/16/25 03/16/25 18:30 19:08 19:27 Glucose 207 H POC Glucose 207 H 195 H 03/16/25 03/16/25 03/16/25 20:41 22:38 23:03 Glucose 162 H POC Glucose 174 H 152 H 03/17/25 03/17/25 03/17/25 00:38 02:36 03:39 Glucose 148 H POC Glucose 144 H 140 H 03/17/25 03/17/25 03/17/25 06:58 07:23 10:31 Glucose 159 H POC Glucose 173 H 250 H 03/17/25 11:35 Glucose POC Glucose 186 H OUTPATIENT ANTIDIABETIC REGIMEN: * Jardiance 25mg po daily * metformin 1000mg po bid * Hunulin R sliding scale HbA1c: 10.1% on 03/15/25 ASSESSMENT: 03/17 * Discussed case this AM with Dr. Padron, AG and CO2 normalized, VBG pH still slightly acidotic. Ok to transition off the insulin drip, stop IV fluids, and begin SQ insulin again. * Lantus at 0.1 units/kg daily to start and NovoLog at a weight based stress of 1.5. He is currently receiving vancomycin and cefepime. 03/16 * Sergey is a 44 year old male who was admitted 03/14 with diabetic foot ulcers and cellulitis of the toe of the right foot. * Currently appears to be anion gap metabolic acidosis/euglycemic DKA. Anion gap has been elevated (14 currently) and CO2 low (16 currently)since admit and VBG pH is low. Urine was + glucose and ketones on admit and again today. Patient was also on Jardiance prior to admit. * Pharmacy was consulted and it was decided to start an insulin drip at 0.05 units/kg/hr. D5 1/2ns + 40kcl/L was also ordered at this time. PLAN FOR INPATIENT GLYCEMIC CONTROL: * Hold outpatient diabetes medications * Basal insulin * Lantus 10 units SQ daily * Correctional Insulin with NOVOLOG per scale ACHS or Q6hrs while NPO * Goal Range: Low 120 mg/dL - High 160 mg/dL * Correction Factor: 35 mg/dL/unit * Nutritional / Prandial insulin per carb ratio of 1 unit per 12 grams CHO consumed * Please note that the plan above was derived based on current level of insulin resistance and hospital stress. These recommendations are appropriate for inpatient admission only. Plan of care upon discharge will need to be reassessed to avoid potential outpatient hypo/hyperglycemia. Thank you.
[2025-03-17] MEDS ORDERED: metroNIDAZOLE 500 MG/100 ML BAG IV SCH (16:00)
[2025-03-17] MEDS: metroNIDAZOLE 500 MG TAB PO SCH (20:57)
--- NOTE | 2025-03-18 06:50 | History & Physical Bridge Note ---
Date of Service March 18, 2025 History & Physical Bridge Note I have examined the patient, reviewed the History & Physical and in the interval since the performance of the History & Physical I have noted the following changes of clinical significance: no significant changes noted. Erythema and edema to base of the toe have significantly reduced past 48 hours. toe has demarcated and it appears that should have enough soft tissue to perform a primary closure assuming adequate healthy soft tissue for closure was noted intraoperatively. Written informed consent reviewed with patient including benefits, risks, alternatives and risks to the alternatives being discussed in detail. Signed witnessed. Surgical site marked. Will plan for right fourth digit amputation possible need for metatarsal amputation as needed for treatment of infected gangrenous right fourth toe. Plain radiographs and operative st udies reviewed. All questions answered.
--- NOTE | 2025-03-18 07:03 | Anesthesiology Consultation ---
Date of Service March 18, 2025 Assessment & Plan Consults Requested medical & cardiac Pulmonary History Surgery Operation Date: 03/18/25 07:00 Proposed Procedures p Right 4th Toe Amputation - Tristin Gomez DPM Height/Weight Height: 6 ft Weight: 127 kg Allergies Allergy/AdvReac Type Severity Reaction Status Date / Time No Known Allergies Allergy Verified 03/14/25 15:54 Medications Home Medications Medication Instructions Recorded Confirmed Last Taken cephalexin 500 mg capsule 500 mg PO BID 03/14/25 03/14/25 03/14/25 07:00 clotrimazole 1 % topical cream 1 applic topical BID 03/14/25 03/14/25 03/07/25 duloxetine 20 mg capsule,delayed 20 mg PO QPM 03/14/25 03/14/25 03/13/25 release sprinkle empagliflozin 25 mg tablet 25 mg PO DAILY 03/14/25 03/14/25 03/14/25 (Jardiance) hydroxyzine pamoate 25 mg capsule 25 mg PO QPM 03/14/25 03/14/25 03/13/25 insulin regular human 100 unit/mL 1 sliding scale dose subcut 03/14/25 03/14/25 03/14/25 injection solution (Humulin R USEASDIRECTD Regular U-100 Insulin) lisinopril 10 mg tablet 10 mg PO DAILY 03/14/25 03/14/25 03/14/25 metformin 1,000 mg tablet 1,000 mg PO BID 03/14/25 03/14/25 03/05/25 rosuvastatin 10 mg tablet 10 mg PO QPM 03/14/25 03/14/25 03/13/25 Active Medications Generic Name Dose Route Start Last Admin Trade Name Freq PRN Reason Stop Dose Admin Acetaminophen 650 mg 03/14/25 18:26 03/16/25 19:38 Acetaminophen 325 Mg Tab PO 04/13/25 18:25 650 mg Q4H PRN Administration pain/fever Duloxetine HCl 20 mg 03/14/25 21:00 03/17/25 20:55 Duloxetine Hcl 20 Mg Cap PO 04/13/25 20:59 20 mg QPM FEI Administration Cefepime HCl 2,000 mg in 20 mls @ 5 mls/min 03/14/25 23:00 03/17/25 22:50 Maxipime 2000mg IV 03/21/25 22:59 5 mls/min Q8H FEI Administration Protocol Vancomycin HCl 1,500 mg/ 530 mls @ 200 mls/hr 03/16/25 12:00 03/18/25 06:26 Sodium Chloride IV 03/23/25 11:59 Infused Q8H FEI Infusion Insulin Aspart 0 units 03/17/25 11:30 03/17/25 20:54 Insulin Aspart Per Unit Charge SC 04/16/25 11:29 1 units ACHS FEI Administration Lactobacillus Acidophilus 1,250 mg 03/14/25 21:00 03/17/25 09:33 Advanced Probiotic 625 Mg Capsule PO 04/13/25 20:59 1,250 mg DAILY FEI Administration Levothyroxine Sodium 75 mcg 03/16/25 06:30 03/17/25 06:55 Levothyroxine Sodium 75 Mcg Tablet PO 04/15/25 06:29 75 mcg DAILYBB FEI Administration Lisinopril 10 mg 03/15/25 09:00 03/17/25 09:33 Lisinopril 10 Mg Tab PO 04/14/25 08:59 10 mg DAILY FEI Administration Melatonin 6 mg 03/17/25 00:43 03/17/25 22:50 Melatonin 3 Mg Tab PO 04/16/25 00:42 6 mg HS PRN Administration Sleep Metronidazole 500 mg 03/17/25 21:00 03/17/25 20:57 Metronidazole 500 Mg Tab PO 03/24/25 20:59 500 mg TID FEI Administration Protocol Mupirocin 1 appln 03/16/25 09:00 03/17/25 20:56 Mupirocin 2% Oint 22 Gm Tube EXT 04/15/25 08:59 1 appln BID FEI Administration Rosuvastatin Calcium 10 mg 03/14/25 21:00 03/17/25 20:55 Rosuvastatin Calcium 10 Mg Tab PO 04/13/25 20:59 10 mg QPM FEI Administration Social History Smoking Status: Former smoker Do You Dip or Chew Tobacco: No Hx Alcohol Use: No Hx Substance Use: No substance use type: does not use Physical Exam Vital Signs Last Vital Signs Temp 36.6 C 03/18/25 04:00 Pulse 81 03/18/25 04:00 Resp 16 03/18/25 04:00 BP 122/80 03/18/25 04:00 Pulse Ox 97 03/18/25 04:00 O2 Del Method Room Air 03/18/25 04:00 Testing Laboratory Results 03/16/25 05:58 03/17/25 07:23 Hemoglobin A1c 10.1 % (4.5-5.6) H 03/15/25 06:10 Urine Color Yellow 03/16/25 10:50 Urine Appearance Clear (Clear) 03/16/25 10:50 Urine pH 5.5 (4.5-7.5) 03/16/25 10:50 Ur Specific [place] 1.028 (1.000-1.030) 03/16/25 10:50 Urine Protein Negative (Negative) 03/16/25 10:50 Urine Glucose (UA) 3+ (Negative) H 03/16/25 10:50 Urine Ketones 3+ (Negative) H 03/16/25 10:50 Urine Nitrite Negative (Negative) 03/16/25 10:50 Ur Leukocyte Esterase Negative (Negative) 03/16/25 10:50 03/15/25 Unknown Gram Stain - Final Toe,Left Great Aerobic and Anaerobic Culture - Preliminary Staph aureus MRSA Strep agalactiae (group B) Finegoldia magna 03/14/25 15:59 Aerobic Blood Culture - Preliminary Blood No growth in Aerobic bottle after 48 hours. Anaerobic Blood Culture - Preliminary No growth in Anaerobic bottle after 48 hours. 03/14/25 14:09 Aerobic Blood Culture - Preliminary Blood No growth in Aerobic bottle after 48 hours. Anaerobic Blood Culture - Preliminary No growth in Anaerobic bottle after 48 hours. 03/18/25 03/17/25 06:02 20:06 POC Glucose 188 H 193 H
[2025-03-18] MEDS ORDERED: PROPOFOL IV EMULSION 10 MG/ML 20 ML VIAL IV ONE (07:18)
[2025-03-18] MEDS ORDERED: MIDAZOLAM HCL 1 MG/ML 2ML VIAL ONE (07:18)
[2025-03-18] MEDS ORDERED: LIDOCAINE 2% 2 ML VIAL/AMP(20MG/ML) INFIL ONE (07:18)
[2025-03-18] MEDS ORDERED: ONDANSETRON INJ 2 MG/ML 2 ML VIAL ONE (07:18)
[2025-03-18] MEDS ORDERED: DEXAMETHASONE SOD INJ 4 MG/ML VIAL ONE (07:18)
[2025-03-18] MEDS: LACTATED RINGER'S 1,000 ML IV SCH (07:51)
[2025-03-18] MEDS ORDERED: ONDANSETRON INJ 2 MG/ML 2 ML VIAL IV PRN (08:03)
[2025-03-18] MEDS ORDERED: ATROPINE SULFATE 0.1 MG/ML 10ML SYR IV PRN (08:03)
[2025-03-18] MEDS: BUPIVACAINE 0.5 % 5 MG/1 ML MPF 30ML VIAL ONE (08:11)
[2025-03-18] MEDS ORDERED: ROCURONIUM BROMIDE 10 MG/ML 5 ML VIAL IV ONE (08:15)
[2025-03-18] MEDS: VANCOMYCIN HCL 1000MG/20ML VIAL ONE (08:33)
--- NOTE | 2025-03-18 08:46 | Post Operative Brief Note ---
PG Immediate Post Op with CF Date of Surgery March 18, 2025 Pre & Post Diagnosis Operation Date: 03/18/25 07:00 Pre-Op Diagnosis: Right Foot: Cellulitis and Gangrene Post-Op Diagnosis: Right Foot: Cellulitis and Gangrene I identified the patient and participated in the time-out.: Yes Procedure Operation Date: 03/18/25 07:00 Actual Procedures p Right 4th Toe Amputation(Right) - Tristin Gomez DPM Surgeon Tristin Gomez DPM Screw Eye Assembler none Estimated Blood Loss 5 Findings Consistent with Post-Op Diagnosis Specimens Specimen Description: A. Right Fourth Toe Amputation
[2025-03-18] MEDS: ONDANSETRON INJ 2 MG/ML 2 ML VIAL IV PRN (09:38)
--- NOTE | 2025-03-18 11:11 | Pharmacy Report ---
Pharmacy Glycemic Short Note 2 - Date of Service March 18, 2025 - Glycemic Short BSG Results (Last 24 hours): 03/17/25 03/17/25 03/17/25 11:35 16:15 20:06 POC Glucose 186 H 218 H 193 H 03/18/25 03/18/25 03/18/25 06:02 08:53 10:24 POC Glucose 188 H 210 H 231 H OUTPATIENT ANTIDIABETIC REGIMEN: * Jardiance 25mg po daily * metformin 1000mg po bid * Hunulin R sliding scale HbA1c: 10.1% on 03/15/25 ASSESSMENT: 03/18 * Sergey was successfully transitioned to SQ insulin yesterday. After the insulin drip was stopped, he received a total of 16 units of insulin of SQ insulin (10 units were basal and 6 units were bolus). His BSGs did remain above goal yesterday. * Fasting BSG was above goal this morning. Patient was NPO did not add a dose of basal insulin at that time but did tighten the CF of the bolus insulin * He was ordered a diet at lunch time and his BSG yogi to 231mg/dL so added Lantus 10units SQ x 1. 03/17 * Discussed case this AM with Dr. Padron, AG and CO2 normalized, VBG pH still slightly acidotic. Ok to transition off the insulin drip, stop IV fluids, and begin SQ insulin again. * Lantus at 0.1 units/kg daily to start and NovoLog at a weight based stress of 1.5. He is currently receiving vancomycin and cefepime. 03/16 * Sergey is a 44 year old male who was admitted 03/14 with diabetic foot ulcers and cellulitis of the toe of the right foot. * Currently appears to be anion gap metabolic acidosis/euglycemic DKA. Anion gap has been elevated (14 currently) and CO2 low (16 currently)since admit and VBG pH is low. Urine was + glucose and ketones on admit and again today. Patient was also on Jardiance prior to admit. * Pharmacy was consulted and it was decided to start an insulin drip at 0.05 units/kg/hr. D5 1/2ns + 40kcl/L was also ordered at this time. PLAN FOR INPATIENT GLYCEMIC CONTROL: * Hold outpatient diabetes medications * Basal insulin * Lantus 10 units SQ x 1 at lunch time today * Correctional Insulin with NOVOLOG per scale ACHS or Q6hrs while NPO * Goal Range: Low 120 mg/dL - High 160 mg/dL * Correction Factor: 30 mg/dL/unit * Nutritional / Prandial insulin per carb ratio of 1 unit per 10 grams CHO consumed * Please note that the plan above was derived based on current level of insulin resistance and hospital stress. These recommendations are appropriate for inpatient admission only. Plan of care upon discharge will need to be reassessed to avoid potential outpatient hypo/hyperglycemia. Thank you.
[2025-03-18 11:21] LABS: Hematocrit (blood only) 37.6 % (42.0-52.0); Hemoglobin 11.1 g/dl (14.0-18.0); Mean Corpuscular Hemoglobin 16.7 pg (25.0-34.0); Mean Corpuscular Volume 56.5 fL (80.0-100.0); Platelet Count 270 K/uL (130-400); RDW Standard Deviation 33.1 fL (36.4-46.3); Red Blood Count 6.65 M/uL (4.70-6.10); White Blood Count 4.73 K/ul (4.8-10.8)
[2025-03-18 11:49] LABS: Creatinine Clr Calc Pharmacy 142.7 ml/min
[2025-03-18] MEDS: LANTUS PER UNIT CHARGE SQ ONE (11:57)
--- NOTE | 2025-03-18 12:12 | Operative Report ---
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 Proximal margin bone proximal phalanx right fourth toe 2. Bone for culture proximal phalanx right fourth toe 3. Soft tissue for culture right fourth toe 4. Right fourth toe for gross pathologic analysis Drains None Complications None Indications Patient presented to [facility] emergency department from [facility] in [facility] with concern for bilateral diabetic foot wounds. Right fourth toe was found to be necrotic with ascending cellulitis to the level of the midfoot. Plain film radiographs of the bilateral foot without signs of osteomyelitis. Duplex arterial Doppler study with right RAKEL at 0.9 and left RAKEL 0.86. Patient has palpable pedal pulses and aside from the gangrenous toe relatively healthy appearing nonischemic appearing soft tissues to the foot. Was presumed that necrotic changes to the right fourth toe are primarily secondary to diabetic foot infection as opposed to ischemic disease. He was initiated on empiric IV antibiotics and treated with Betadine wet-to-dry dressings and a postop shoe over the weekend to allow for improved soft tissue envelope and demarcation of the necrotic tissue. On evaluation this morning demarcation lines appear to be well-defined proximally with no significant or notable advancement over the weekend. Patient also has decreased cellulitis proximally at the base of the fourth toe which should improve the soft tissues ability to heal. Initially patient was hesitant to move forward with plan for amputation of the fourth toe and consider continued conservative care with allow for demarcation and autoamputation however after speaking with his family is decided he would like to move forward with amputation. Benefits, risks, alternatives and risks to the alternatives are discussed at length with patient. Reviewed written informed consent for right fourth digit amputation which was signed by patient and witnessed by his nurse. Description of Procedure Patient was brought in the operating room and left on the hospital bed for the procedure. Timeout is held confirming correct patient, side, site, procedure with all necessary parties confirming. Following IV sedation local anesthesia obtained about the patient's right fourth ray utilizing a total of 12 cc of half percent Marcaine plain in a modified Preston block fashion. Patient received 2 g IV Ancef immediately prior to procedure. The right lower extremity is scrubbed prepped and draped in usual aseptic fashion to the level of the ankle. Attention is directed to the right fourth toe which dorsally is noted to be necrotic with demarcation line at the level just proximal to the proximal inter phalangeal joint and plantarly with necrotic/gangrenous tissue extending to the sulcus of the toe. Skin Skribe was used to plan a vertical fishmouth type incision leaving approximately 1/8 inch margin of healthy tissue between the incision and the gangrenous tissue. 15 blade is utilized to create an incision which was carried deep to the level of the proximal phalanx following the planned incision. Soft tissues are freed from surrounding the proximal phalanx freer elevator dorsally medially and laterally. Sagittal saw was utilized to resect the toe at the level of the proximal one third of the proximal phalanx and toe was passed from the operative field. On the back table sagittal saw was utilized to collect proximal margin bone for pathology, bone for culture. Soft tissue cultures collected from the plantar necrotic tissue of the toe and the remainder of the digit is sent for gross pathologic analysis. Surgical wound is flushed with copious amounts of normal sterile saline. Open lumen x 2 to the wound bed are cauterized to control bleeding. Remainder of the vessels to the digit bleeding is controlled with direct pressure for 2 minutes. Wound is again flushed with copious amounts of normal sterile saline. Clean instruments are used from thereon out to resect tenderness tissue from the wound bed. Long flexor and extensor tendons are pulled distally cut allowing them to retract into more proximal soft tissues. A single Vicryl suture is utilized to reapproximate periosteal tissues over the cut end of the proximal phalanx. Wound edges are reapproximated and closed with 4-0 nylon in simple interrupted suturing fashion. Foot is cleansed with normal sterile saline dried and dressed with Betadine soaked Adaptic, 4 x 4 fluff gauze, ABD pad x 2, Kings and a lightly applied Kavon bandage total dressings in place. Patient tolerated the procedure and anesthesia well. He was transferred to the recovery room with vital signs stable and vascular status intact to all remaining digits of the right foot. Following a brief period of postoperative monitoring in the recovery room patient was transferred back to his bed on the floor for ongoing medical management continuation of IV antibiotics. Podiatry standpoint I believe patient should remain in the hospital for at least an additional 24 hours to monitor fluid health and continue medical management as we await completion of preoperative cultures collected on . All infected or necrotic appearing soft tissue and bone are excised surgically from the right foot therefore should be able to discharge patient on p.o. antibiotics following 24 hours of monitoring. He will continue to minimal weightbearing in a postop shoe to the right foot as well as his cam walker to the left foot at all times while ambulating. Patient will require dressing changes every other day with Betadine to the incision and a dry sterile dressing. He will need to follow-up closely in the wound care center to monitor this incision for any signs of demarcation. Will have a low threshold for outpatient referral to vascular surgery with any signs of further necrosis. Right foot needs to may remain clean and dry which should not be submerged or become wet. Patient may use a cast bag to shower or take sponge baths until sutures are removed. I will see patient tomorrow for his first dressing change and wound evaluation and follow- up in the wound care center within 1 week of discharge. I attest to the content of the Intraoperative Record and any orders documented therein. Any exceptions are noted below.
[2025-03-18] MEDS ORDERED: PHARMACY GLYCEMIC MGMT CONSULT PRN (15:20)
--- NOTE | 2025-03-18 15:20 | Anesthesiology Progress Note ---
Date of Service March 18, 2025 Anesthesia Post Procedure Vital Signs Vital Signs: Temp Pulse Pulse Pulse Resp BP BP 03/18/25 10:29 80 16 134/75 03/18/25 09:49 91 H 18 140/94 03/18/25 09:35 89 03/18/25 09:30 36.6 C 86 16 126/83 03/18/25 09:10 36.1 C L 82 17 131/80 03/18/25 09:00 82 18 129/84 03/18/25 08:51 36.5 C 82 15 99/76 L 03/18/25 07:46 36.9 C 84 18 153/88 H 03/18/25 07:04 36.8 C 94 H 18 145/93 H 03/18/25 07:00 83 03/18/25 04:00 36.6 C 81 16 122/80 03/18/25 00:03 36.7 C 82 16 128/80 03/17/25 21:49 85 03/17/25 19:23 36.8 C 103 H 16 146/95 H 03/17/25 15:33 37.1 C 88 18 130/84 Pulse Ox O2 Del Method O2 Flow Rate 03/18/25 10:29 98 Room Air 03/18/25 09:49 96 Room Air 03/18/25 09:35 03/18/25 09:30 95 Room Air 03/18/25 09:10 97 Room Air 03/18/25 09:00 97 Room Air 03/18/25 08:51 100 Oxymask 7 03/18/25 07:46 96 Room Air 03/18/25 07:04 96 Room Air 03/18/25 07:00 03/18/25 04:00 97 Room Air 03/18/25 00:03 96 Room Air 03/17/25 21:49 03/17/25 19:23 99 Room Air 03/17/25 15:33 96 Room Air Pain Intensity Foot: Pain Intensity: 4 Transfer of Care Handoff Completed per policy Notes Mental Status: alert / awake / arousable Patient Amnestic to Procedure: Yes Nausea / Vomiting: adequately controlled Pain: adequately controlled Airway Patency, RR, SpO2: stable & adequate BP & HR: stable & adequate Hydration State: stable & adequate Anesthetic Complications: no major complications apparent and Pt Satisfied with anesthetic care
--- NOTE | 2025-03-18 15:21 | Hospitalist Progress Note ---
Date of Service March 18, 2025 Assessment & Plan (1) Diabetic ulcer of toes of both feet: (2) Cellulitis of toe of right foot: (3) Type 2 diabetes mellitus: (4) Hypertension: (5) Hyperlipidemia: (6) Hypothyroidism: (7) Sleep apnea: Plan Patient 44-year-old gentleman with uncontrolled diabetes and diabetic foot ulcers and cellulitis with necrotic and gangrenous ulcer of the right fourth toe. Status post amputation of the fourth toe. Cultures revealing MRSA infection. Source infection has been controlled with the amputation. Can transition to oral antibiotics Reviewed podiatry recommendations for weightbearing and wound care Continue to monitor glucose and cover with insulin Monitor laboratory studies in a.m. Admission and Anticipated Discharge Date Admission Date: March 14, 2025 Subjective Patient seen status post amputation of right right fourth toe. States the pain is controlled. Denies any other specific complaints. Physical Exam Physical Exam: Constitutional: Alert, nontoxic HEENT: Mucous membranes moist. Lungs: Clear to auscultation, decreased, no wheezes rales or rhonchi CV: S1-S2, regular Abdomen: Soft, nontender, nondistended Extremities: No significant edema, right foot and surgical dressing with Kavon wrap, clean and dry Neuro: No focal deficits Psych: Cooperative, normal mood Results & Data Results & Data Vital Signs (Past 12 Hours) Vital Signs Temp Pulse Pulse Pulse Resp BP BP 03/18/25 10:29 80 16 134/75 03/18/25 09:49 91 H 18 140/94 03/18/25 09:35 89 03/18/25 09:30 36.6 C 86 16 126/83 03/18/25 09:10 36.1 C L 82 17 131/80 03/18/25 09:00 82 18 129/84 03/18/25 08:51 36.5 C 82 15 99/76 L 03/18/25 07:46 36.9 C 84 18 153/88 H 03/18/25 07:04 36.8 C 94 H 18 145/93 H 03/18/25 07:00 83 03/18/25 04:00 36.6 C 81 16 122/80 Pulse Ox O2 Del Method O2 Flow Rate 03/18/25 10:29 98 Room Air 03/18/25 09:49 96 Room Air 03/18/25 09:35 03/18/25 09:30 95 Room Air 03/18/25 09:10 97 Room Air 03/18/25 09:00 97 Room Air 03/18/25 08:51 100 Oxymask 7 03/18/25 07:46 96 Room Air 03/18/25 07:04 96 Room Air 03/18/25 07:00 03/18/25 04:00 97 Room Air Diagnostic Findings Reviewed imaging, laboratory and diagnostic studies. Pertinent findings as below. Blood cultures no growth after 48 hours Wound culture from 627 growing MRSA and strep. Both sensitive to clindamycin WBCs 4.7 Hemoglobin 11.1 Creatinine 0.91 (3) Type 2 diabetes mellitus Diabetes mellitus complication status: with other specified complication Diabetes mellitus mcc insulin use: without mcc use Qualified Code(s): E11.69 - Type 2 diabetes mellitus with other specified complication
[2025-03-19 08:00] LABS: Anion Gap 9.0 (3-11); Blood Urea Nitrogen 9.0 mg/dl (6-23); Calcium 9.1 mg/dl (8.6-10.3); Carbon Dioxide 26.0 mmol/L (21-32); Chloride 101.0 mmol/L (98-107); Creatinine Clr Calc Pharmacy 150.9 ml/min; Glucose 217.0 mg/dl (70-99(Fasting)); Magnesium 1.4 mg/dl (1.7-2.4); Potassium 4.4 mmol/L (3.5-5.1); Sodium 136.0 mmol/L (136-145)
[2025-03-19] MEDS: LANTUS PER UNIT CHARGE SQ SCH (08:48)
[2025-03-19] MEDS: MAGNESIUM SULFATE / D5W 1 GM/100 ML BAG IV ONE (08:49)
[2025-03-19] MEDS: MAGNESIUM OXIDE 400 MG TAB PO ONE (09:22)
[2025-03-19 11:47] VITALS: BP 130/68; RESP 18; TEMP 97.7; O2SAT 98
--- NOTE | 2025-03-19 12:40 | Podiatry Progress Note ---
Date of Service March 19, 2025 Assessment & Plan (1) Status post amputation of lesser toe of right foot: (2) Diabetic ulcer of left great toe: Plan Postop day 1 status post right fourth digit amputation: - Every other day dressing change cleansing incision line with Betadine dressing with Aquacel Ag and a dry sterile dressing. Lightly applied Kavon bandage total dressings in place. - Continue postop shoe at all times while ambulating for short distance and transfer. - Proximal margin pathology right fourth toe proximal phalanx 03/18/2025: Pending - Intraoperative cultures growing Staph aureus Left great toe wound: Dressing change every other day with Aquacel Ag and a dry sterile dressing. - Continue weightbearing in cam walker at all times while ambulating for short distance and transfer. Patient okay for discharge from podiatry standpoint on p.o. antibiotics. - Continue dressing changes for the bilateral foot as detailed above. - Continue weightbearing restrictions until follow-up as an outpatient for reevaluation of right foot wound. - Recommend patient be held in the [facility] until outpatient follow-up to allow assistance with ADLs and for him to remain minimal weightbearing to the bilateral foot in addition to keeping dressing in wounds clean and intact. - Right foot to remain dry should avoid showers or bathing unless he is able to cover the right lower extremity with a cast bag. Encouraged sponge baths until follow-up as an outpatient. - Patient to follow-up in the wound care center within 2 weeks of discharge for left hallux wound evaluation and suture removal from the right foot. Thank you for consulting podiatry to aid in the care of this patient. Will continue to follow while he remains in house and follow-up in the wound care center following discharge. Admission and Anticipated Discharge Date Admission Date: March 14, 2025 Subjective Patient resting comfortably in hospital bed postop day 1 status post right fourth digit amputation. Denies pain in the right foot. Dressing is in place with strikethrough which has been reinforced. Reports minimal weightbearing in postop shoe over the past 24 hours. Denies nausea vomiting fever chills. Review of Systems Review of Systems: Denies nausea, vomiting, fever, chills, shortness of breath, chest pain. Denies pain in the right foot. All other systems reviewed and negative unless otherwise stated in HPI. Physical Exam Physical Exam: Const: Appears well developed and well nourished. No signs of acute distress present. CV: Extremities: No cyanosis Capillary refill time is less than 2 seconds all digits of the bilateral foot. Posterior tibial and dorsalis pedis pulses are palpable bilateral. Lymph: No palpable or visible regional lymphadenopathy. Neuro: Loss of protective sensation bilateral foot Psych: Mood/Affect: Mood is normal. Affect is normal. Cognition: Orientation is intact to person, place and time. Focused lower extremity musculoskeletal exam: Leg: No pain with compression of the calf muscle. Ankles: Normal to inspection and palpation. No swelling bilaterally. No tenderness bilaterally. Motor strength is intact. Range of motion pain-free and unlimited. Feet: Bilateral Charcot neuroarthropathy with deformity of the midfoot and loss of medial arch height. Ulcer #1: Right fourth toe: Status post amputation 03/18/2025. Postop day 1. Wound edges well-approximated with all sutures intact. Periwound soft tissue appears relatively healthy with no signs of necrosis or further advancement of gangrenous tissue. There are some dried sanguinous drainage to the periwound from incisional bleeding over the past 24 hours. Pressure is applied to the per iwound soft tissues without expression of any drainage. Ulcer #2: Left great toe: Wound of the great toe: Wound bed is healthy granular tissue. Decreased wound dimensions over the past 48 hours. No signs of local soft tissue infection. Scant active serous drainage. Results & Data Results & Data Vital Signs (Past 12 Hours) Vital Signs Temp Pulse Pulse Resp BP BP Pulse Ox 03/19/25 11:00 36.5 C 91 H 18 130/68 98 03/19/25 07:43 84 03/19/25 07:00 36.4 C L 88 16 142/85 H 97 03/19/25 03:36 36.7 C 82 18 131/83 95 O2 Del Method 03/19/25 11:00 Room Air 03/19/25 07:43 03/19/25 07:00 Room Air 03/19/25 03:36 Room Air Coding Level of Care Code 66067 SUB INP/OBS CARE 2/35MIN Diagnoses Status post amputation of lesser toe of right foot Z89.421 Diabetic ulcer of left great toe E11.621; L97.529
--- NOTE | 2025-03-19 13:02 | Pharmacy Report ---
Pharmacy Glycemic Short Note 2 - Date of Service March 19, 2025 - Glycemic Short BSG Results (Last 24 hours): 03/18/25 03/18/25 03/19/25 16:11 20:29 06:30 Glucose 217 H POC Glucose 233 H 191 H 03/19/25 03/19/25 07:33 11:24 Glucose POC Glucose 255 H 224 H OUTPATIENT ANTIDIABETIC REGIMEN: * Jardiance 25mg po daily * metformin 1000mg po bid * Hunulin R sliding scale HbA1c: 10.1% on 03/15/25 ASSESSMENT: 03/19 * Patient received total of 29 units of insulin yesterday, of which 10 units were basal insulin. * Fasting BSG >200 - however did have surgery yesterday, appears they also gave some IV dexamethasone intraoperatively which likely is contributing to higher blood sugars this morning and yesterday evening. * Will increase basal to 15 units once daily this AM, tighten novolog for today 03/18 * Sergey was successfully transitioned to SQ insulin yesterday. After the insulin drip was stopped, he received a total of 16 units of insulin of SQ insulin (10 units were basal and 6 units were bolus). His BSGs did remain above goal yesterday. * Fasting BSG was above goal this morning. Patient was NPO did not add a dose of basal insulin at that time but did tighten the CF of the bolus insulin * He was ordered a diet at lunch time and his BSG yogi to 231mg/dL so added Lantus 10units SQ x 1. 03/17 * Discussed case this AM with Dr. Padron, AG and CO2 normalized, VBG pH still slightly acidotic. Ok to transition off the insulin drip, stop IV fluids, and begin SQ insulin again. * Lantus at 0.1 units/kg daily to start and NovoLog at a weight based stress of 1.5. He is currently receiving vancomycin and cefepime. 03/16 * Sergey is a 44 year old male who was admitted 03/14 with diabetic foot ulcers and cellulitis of the toe of the right foot. * Currently appears to be anion gap metabolic acidosis/euglycemic DKA. Anion gap has been elevated (14 currently) and CO2 low (16 currently)since admit and VBG pH is low. Urine was + glucose and ketones on admit and again today. Patient was also on Jardiance prior to admit. * Pharmacy was consulted and it was decided to start an insulin drip at 0.05 units/kg/hr. D5 1/2ns + 40kcl/L was also ordered at this time. PLAN FOR INPATIENT GLYCEMIC CONTROL: * Hold outpatient diabetes medications * Basal insulin * Lantus 15 units once daily * Correctional Insulin with NOVOLOG per scale ACHS or Q6hrs while NPO * Goal Range: Low 120 mg/dL - High 160 mg/dL * Correction Factor: 20 mg/dL/unit * Nutritional / Prandial insulin per carb ratio of 1 unit per 7 grams CHO consumed * Please note that the plan above was derived based on current level of insulin resistance and hospital stress. These recommendations are appropriate for inpatient admission only. Plan of care upon discharge will need to be reassessed to avoid potential outpatient hypo/hyperglycemia. Thank you.
--- NOTE | 2025-03-19 13:15 | Discharge Summary ---
Discharge Summary Date of Service March 19, 2025 Principal Dx & Hospital Course #1 = Principal Diagnosis (1) Diabetic ulcer of toes of both feet: (2) Cellulitis of toe of right foot: (3) Type 2 diabetes mellitus: (4) Hypertension: (5) Hyperlipidemia: (6) Hypothyroidism: (7) Sleep apnea: Plan Patient 44-year-old gentleman who is a detainee of the [facility]. Presented to the emergency room with open wounds on his toes in the setting of uncontrolled diabetes. Patient was admitted to the hospital. He was placed on broad- spectrum IV antibiotics. Blood cultures were obtained and there is no growth to date. Preliminary wound culture grew out MRSA as well as strep group B. Due to the extensiveness of his wounds podiatry consultation was obtained. Patient had significant gangrenous changes of the right toe and cellulitic changes to the left. X-ray imaging of the foot did not show any definitive osteomyelitis. Arterial studies of the lower extremity showed RAKEL of 0.9 on the right and 0.86 on the right.'s are consistent with borderline/mild peripheral arterial disease. Due to the extensiveness of the ulceration on the right toe was recommended he undergo amputation. Patient was agreeable and underwent right fourth toe amputation on 03/18/2025. Patient's postoperative course was uneventful. Had initial dressing changes on the day of discharge. He was tolerating his diet. During this time patient also had his glucose and insulin managed by pharmacy. He initially presented with an anion gap and significant hyponatremia. He was treated with aggressive fluids and per DKA protocol. His gap and sugars improved and he was transition back to subcutaneous insulin. He will continue long-acting Lantus once a day with scheduled insulin with meals along with sliding scale insulin. He will continue his other oral medications for diabetes that he was on prior to admission as well. Patient's TSH was slightly elevated. Concerning for possible subclinical hypothyroidism. Started on Synthroid which she apparently had been on in the past question whether he had been taking it And/or was not prescribed at [facility] Podiatry gave specific instructions on dressing and wound care. He will continue to follow with his providers [facility] the [facility] and podiatry. Notes For Next Care Provider Wound care as outlined below and recommended by podiatry Follow-up with podiatry May need further adjustments of the Lantus and scheduled insulin with meals Minimal weightbearing right foot, healed touch only Wear postoperative shoe TSH in 4 to 6 weeks Medication Changes From Visit Lantus daily Scheduled short acting insulin with meals Clindamycin for MRSA foot infection Admission HPI Per Admitting Provider 44 year old male inmate with PMH significant for type 2 diabetes, hypertension, hyperlipidemia, hypothyroidism, sleep apnea, and tinea corporis who presents to the ED on 03/14/2025 for toe wounds. Patient reports that he was given new shoes about five days ago and since walking around in them, he developed toe wounds on his left first toe and right fourth toe. He was given his previous shoes about two days ago, but the wounds are not improving, and his right fourth toe is turning black, which is why he sought evaluation today. He reports slight pain and numbness in his right foot but otherwise is able to ambulate without significant pain. Current pain is 2/10. He reports that his facility was soaking and wrapping his wounds and he was given an oral antibiotic. He reports feeling fatigued, weak, and has had a poor appetite. Denies fevers, chills, chest pain, abdominal pain, N/V/D. Admission Exam Per Admitting Provider See H&P Discharge Exam Constitutional: Alert, nontoxic HEENT: Mucous membranes moist. Lungs: Clear to auscultation, decreased, no wheezes rales or rhonchi CV: S1-S2, regular Abdomen: Soft, nontender, nondistended Extremities: No significant edema Musculoskeletal: Right foot surgical dressing dry and intact Neuro: No focal deficits Psych: Cooperative, normal mood Updated Medication List Medication Instructions Recorded Confirmed Type cephalexin 500 mg capsule 500 mg PO BID 03/14/25 03/14/25 History clotrimazole 1 % topical cream 1 applic topical BID 03/14/25 03/14/25 History duloxetine 20 mg capsule,delayed 20 mg PO QPM 03/14/25 03/14/25 History release sprinkle empagliflozin 25 mg tablet 25 mg PO DAILY 03/14/25 03/14/25 History (Jardiance) hydroxyzine pamoate 25 mg capsule 25 mg PO QPM 03/14/25 03/14/25 History insulin regular human 100 unit/mL 1 sliding scale dose subcut 03/14/25 03/14/25 History injection solution (Humulin R USEASDIRECTD Regular U-100 Insulin) lisinopril 10 mg tablet 10 mg PO DAILY 03/14/25 03/14/25 History metformin 1,000 mg tablet 1,000 mg PO BID 03/14/25 03/14/25 History rosuvastatin 10 mg tablet 10 mg PO QPM 03/14/25 03/14/25 History clindamycin HCl 300 mg capsule 300 mg PO QID 7 days #28 caps 03/19/25 Rx (Cleocin HCl) insulin glargine 100 unit/mL 20 unit (0.2 mL) subcut DAILY #10 03/19/25 Rx subcutaneous solution (Lantus mL U-100 Insulin) levothyroxine 75 mcg tablet 75 mcg PO DAILYBB 30 days #30 tabs 03/19/25 Rx (Synthroid) silver-hydrocolloid dressing 1.2 See Rx Instructions .Route 03/19/25 Rx %-3.5" X 6" (Aquacel-AG) .COMPLEX #10 ea Hospital Stay Data Consultations 03/14/25 15:47 ED Decision to Admit Stat 03/14/25 18:26 Consult Podiatry Routine Procedures Performed Operation Date: 03/18/25 07:00 Actual Procedures p Right 4th Toe Amputation(Right) - Tristin Gomez DPM Diagnostic Imagining Performed 03/14/25 16:40 US arterial duplex LE BI Urgent Reviewed imaging, laboratory and diagnostic studies. Pertinent findings as below. ABIs as noted above WBCs 4.3 Hemoglobin 0.1 Platelets of 270 Electrolytes all within normal range Creatinine 0.85 Glucose 217 Hemoglobin A1c 10.1% Magnesium 1.4 and will be repleted prior to discharge Iron studies within normal ranges Vitamin B12 and folate within normal ranges TSH 5.02 Wound cultures growing Staphylococcus, MRSA Blood cultures no growth Surgical pathology of toe amputation pending Pending Results Patient Have Any Pending Studies at Discharge: Yes Discharge Instructions Given to Patient (Per Discharging Provider) Complete course of antibiotics Follow-up with podiatry as coordinated through their office Continue with wound care as recommended by podiatry Total Time Total Time Spent Total Time Spent (In Minutes): 43
[2025-03-19 13:44] VITALS: PULSE 82
== END 2025-03-19 15:24 | DRG 617 ==
LOC: ED 13:51 → SUATTDRO 16:48 → 2S 16:48